=== PATIENT | female | born 1980 | race Caucasian/White ===

== ENCOUNTER 2016-03-30 08:40 | Emergency (ER) | payer MEDICAID ==
[~2016-03-30] VITALS: Ht 160 cm; Wt 92.0 kg
[2016-03-30 08:44] VITALS: Ht 160 cm; Wt 92.0 kg
--- NOTE | 2016-03-30 09:44 | RADRPT ---
PROCEDURE: XR Right Foot CLINICAL INDICATION: Second and third toe pain TECHNIQUE: AP, oblique, and lateral radiographs were submitted. COMPARISON: None FINDINGS: Osseous structures: appear well mineralized and intact with no fracture or destructive process iden tified. Joint spaces: are well maintained, with no significant spurring, erosion or joint effusion evident. Soft tissues: appear unremarkable. IMPRESSION: Unremarkable right foot. Physician Anil Date Time Electronically viewed and signed by Camron Judge Physician on 03/30/2016 09:44 /
[2016-03-30] MEDS ORDERED: NAPR-260 PO (09:56)
--- NOTE | 2016-03-30 12:06 | ERD ---
DATE OF SERVICE: 03/30/2016 HISTORY OF PRESENT ILLNESS: The patient is a 35-year-old female coming in complaining of right foot pain. Patient dropped a larger measuring stick on her foot. Her second and third toes are painful on the right foot. She is able to ambulate. She has not taken any medication for her symptoms. S he states that her toes feel a sleepy and it hurts more when she applies pressure. PAST MEDICAL HISTORY: Denies medical problems. ALLERGIES: Denies allergies to medications. SURGICAL HISTORY: Denies. SOCIAL HISTORY: Denies. REVIEW OF SYSTEMS: Refer to HPI for positives, all other systems negative. PHYSICAL EXAMINATION VITAL SIGNS: Temperature is 98.1, pulse 71, blood pressure 143/58, respiratory 16, O2 saturation 97 % on room air. Pain intensity is 6/10. GENERAL: The patient is well-appearing, well-nourished, no acute distress. CHEST: Clear to auscultation bilaterally. There are no rales, wheezes or rhonchi. HEART: Regular rate and rhythm. No murmurs, clicks, rubs or gallops. No S3 or S4. SKIN: There is no apparent rash or petechia. The skin is warm and dry. EXTREMITIES: The patient has mild tenderness to palpation over the distal tip of the right second a nd third toe. There is no obvious deformity, no crepitus on exam and no open lacerations or abrasio ns. Cap refill is less than 2 seconds. Compartments are soft. Pulses are intact. Neurovascularly intact. Patient is able to move slightly. EMERGENCY ROOM COURSE: The patient had a 3-view x-ray done of the right 2nd and 3rd toe which showe d unremarkable right foot x-ray. Patient was guy taped the second and third toe and given an orth o shoe. DIAGNOSIS: Toe contusion. MEDICAL DECISION MAKING: I have low suspicion for acute fracture or dislocation. Low suspicion for open fracture, tendon or ligament injury or vascular deficit. DISCHARGE: The patient is discharged stable. Patient is given a prescription for naproxen and told to follow up with primary care within 1 to 2 days for reevaluation. Patient was told if symptoms p rogress or worsen to return to the ER. All other questions answered at time of discharge. Discharg e summary given at the time of departure. Patient understood and complied with plan. Dictated By: JOY MAYER for MICHAEL VO/[place] Conf#: [id number] DID#: [id number]
== END 2016-03-30 10:25 | disposition home or self-care (01) ==
LOC: FTE 08:40
DX: S90.121A Contusion of right lesser toe(s) without damage to nail, initial encounter (principal); W20.8XXA Other cause of strike by thrown, projected or falling object, initial encounter; Y92.9 Unspecified place or not applicable
CPT/HCPCS: 73630

== ENCOUNTER 2016-09-24 00:04 | Emergency (ER) | payer MEDICAID ==
[~2016-09-24] VITALS: Ht 152.4 cm; Wt 90.0 kg
[~2016-09-24 00:04] MED LIST: NAPR-260 PO
[2016-09-24 00:07] VITALS: Ht 152.4 cm; Wt 90.0 kg
--- NOTE | 2016-09-24 01:03 | ERA ---
ER Documentation Chief Complaint Date/Time DATE: 09/24/16 TIME: 01:03 Chief Complaint abd pain HPI The patient is a 36-year-old female, presenting to the ER because of epigastric and topical abdominal pain radiating to the back. She denies similar symptoms previously, denies fever, chills, neck pain, chest pain, complains of nausea and vomiting 2, denies dyspnea, dysuria, constipation, diarrhea. She does not smoke or drink Past medical/surgical history: None ROS All systems reviewed and are negative except as per history of present illness. Medications Home Meds Active Scripts Omeprazole* (Omeprazole*) 20 Mg Capsule.dr, 20 MG PO DAILY, #30 CAP Prov:NORTH HOPKINS MD 09/24/16 Ibuprofen* (Motrin*) 600 Mg Tab, 600 MG PO Q6H Y for PAIN AND OR ELEVATED TEMP, #30 TAB Prov:NORTH HOPKINS MD 09/24/16 Naproxen* (Naprosyn*) 500 Mg Tablet, 500 MG PO BID Y for PAIN AND/OR INFLAMMATION, #30 TAB Prov:STEPHANIE NEWTON PA-C 03/30/16 Allergies Allergies: Coded Allergies: No Known Allergy (Unverified , 03/30/16) PMhx/Soc History of Surgery: No Anesthesia Reaction: No Hx Neurological Disorder: No Hx Respiratory Disorders: No Hx Cardiac Disorders: No Hx Psychiatric Problems: No Hx Miscellaneous Medical Probl: Yes (; Normal Spontaneous Deliveries) Hx Alcohol Use: No Hx Substance Use: No Hx Tobacco Use: No Physical Exam Vitals Vital Signs Date Time Temp Pulse Resp B/P Pulse Ox O2 Delivery O2 Flow Rate FiO2 09/24/16 03:47 98.1 63 16 109/54 99 Room Air 09/24/16 00:07 98.5 69 20 150/85 98 Physical Exam Const: No acute distress. Head: Atraumatic. Eyes: Normal Conjunctiva. ENT: Normal External Ears, Nose and Mouth. Neck: Full range of motion. No meningismus. Resp: Clear to auscultation bilaterally. Cardio: Regular rate and rhythm. Abd: Soft, non distended, normal bowel sounds, mild epigastric and right upper quadrant tenderness, no right lower quadrant, CVA tenderness, rigidity, rebound tenderness Skin: No petechiae or rashes. Back: No midline or flank tenderness. Ext: No cyanosis, or edema. Neur: Awake and alert. No focal deficit Psych: Normal Mood and Affect. Result Diagram: 09/24/168 09/24/16 0118 Results 24 hrs Laboratory Tests Test 09/24/16 01:14 09/24/16 01:18 Bedside Urine pH (LAB) 6.0 Bedside Urine Protein (LAB) 1+ Bedside Urine Glucose (UA) Negative Bedside Urine Ketones (LAB) Negative Bedside Urine Blood 2+ Bedside Urine Nitrite (LAB) Negative Bedside Urine Leukocyte Esterase (L Negative White Blood Count 11.310^3/ul Red Blood Count 4.6410^6/ul Hemoglobin 13.6g/dl Hematocrit 40.8% Mean Corpuscular Volume 87.9fl Mean Corpuscular Hemoglobin 29.3pg Mean Corpuscular Hemoglobin Concent 33.3g/dl Red Cell Distribution Width 12.2% Platelet Count 15361^3/UL Mean Platelet Volume 10.3fl Neutrophils % 68.4% Lymphocytes % 21.6% Monocytes % 8.2% Eosinophils % 1.1% Basophils % 0.3% Nucleated Red Blood Cells % 0.0/100WBC Neutrophils # 7.810^3/ul Lymphocytes # 2.410^3/ul Monocytes # 0.910^3/ul Eosinophils # 0.110^3/ul Basophils # 0.010^3/ul Nucleated Red Blood Cells # 0.010^3/ul Sodium Level 131mmol/L Potassium Level 3.7mmol/L Chloride Level 98mmol/L Carbon Dioxide Level 28mmol/L Anion Gap 9 Blood Urea Nitrogen 13mg/dl Creatinine 0.57mg/dl Glucose Level 103mg/dl Calcium Level 10.5mg/dl Total Bilirubin 0.1mg/dl Direct Bilirubin 0.00mg/dl Indirect Bilirubin 0.1mg/dl Aspartate Amino Transf (AST/SGOT) 21IU/L Alanine Aminotransferase (ALT/SGPT) 34IU/L Alkaline Phosphatase 56IU/L Total Protein 7.5g/dl Albumin 4.5g/dl Globulin 3.00g/dl Albumin/Globulin Ratio 1.50 Lipase 35U/L Current Medications Medications (Trade) Dose Ordered Sig/Martine Route PRN Reason Start Time Stop Time Status Last Admin Dose Admin Sodium Chloride (NS) 1,000 ml @ 1,000 mls/hr Q1H STAT IV 09/24/16 01:08 09/24/16 02:07 DC 09/24/16 01:16 Morphine Sulfate (morphine) 4 mg ONCE STAT IV 09/24/16 01:08 09/24/16 01:09 DC 09/24/16 01:16 Ondansetron HCl (Zofran Inj) 4 mg ONCE STAT IV 09/24/16 01:08 09/24/16 01:09 DC 09/24/16 01:16 Ketorolac Tromethamine (Toradol) 30 mg ONCE ONCE IV 09/24/16 04:00 09/24/16 04:01 DC 09/24/16 04:04 Procedures/[place] [id number] Radiology Main Line: [phone] DIAGNOSTIC IMAGING REPORT Patient: DILLON SALAZAR : 1980 Age: 36 Sex: F MR #: [id number] DOS: 09/24/16 0108 Ordering MD: NORTH HOPKINS MD Location: E/R Room/Bed: PROCEDURE: Ultrasound of the abdomen. CLINICAL INDICATION: Right upper quadrant pain. TECHNIQUE: Sonographic images of the abdomen were performed. COMPARISON: No pertinent prior examinations were submitted for comparison. FINDINGS: Liver: The liver is diffusely increased in echogenicity and mildly enlarged, measuring approximately 17.5 cm. The hepatic veins and portal veins are patent with appropriate directional flow. No intrahepatic ductal dilatation is seen. Gallbladder: The gallbladder is not distended and has normal wall thickness. No pericholecystic fluid or gallstones are visualized. The common duct measures 3.6 mm. Pancreas: There is limited evaluation of the pancreatic body and tail. The visualized portions of the pancreas are unremarkable. Kidneys: The right kidney measures 11.4 cm. There is normal corticomedullary differentiation. There is no evidence of renal calculus or hydronephrosis. IVC: The visualized portion of the inferior vena cava is unremarkable. Aorta: Normal in size. Free fluid: None. IMPRESSION: Hepatic steatosis and mild hepatomegaly. RPTAT: HIKT .Deep Thony, MD, MD Date Time Electronically viewed and signed by .Deep Bhandari MD, MD on 09/24/2016 02:33 .T/ CC: NORTH HOPKINS MD MEDICAL MAKING DECISION: The patient is a 36-year-old female, presenting with acute epigastric abdominal pain of unclear etiology. He was treated with 1 L normal saline, morphine 4 mg IV, Toradol 30 mg IV for pain, Zofran 4 mg IV for nausea with good response The differential diagnoses considered include but are not limited to cholelithiasis, cholecystitis, cystitis, pancreatitis, hepatitis, gastritis, peptic ulcer disease, gastric ulcer, appendicitis, diverticulitis, cholangitis, choledocholithiasis, partial small bowel obstruction. Departure Diagnosis: Primary Impression: Abdominal pain Condition: Good Comments He was discharged with Motrin and Prilosec I discussed the findings with the patient. I advised the patient to follow-up with the primary physician in about 1-2 days, sooner if needed and return if any concern. The patient's blood pressure was elevated (>120/80) but appears stable without evidence of hypertension emergency or urgency. The patient was counseled about the risks of hypertension and urged to pursue outpatient monitoring and therapy within a week with their primary care physician. NORTH HOPKINS MD Sep 24, 2016 01:03
[2016-09-24] MEDS ORDERED: morphine 4 MG/ML VIAL IV STA (01:08)
[2016-09-24] MEDS ORDERED: SOD CHLORIDE 0.9% 1,000 ML IV STA (01:08)
[2016-09-24] MEDS ORDERED: ONDANSETRON 4 MG INJ IV STA (01:08)
[2016-09-24 01:10] LABS: URINE BLOOD (Dip) POC 2+ (NEGATIVE)
[2016-09-24 01:32] LABS: ADD SCAN DIFF NO
[2016-09-24 01:41] LABS: BASOPHILS % 0.3 % (0.0-2.0); EOSINOPHILS # 0.1 10^3/ul (0.0-0.5); EOSINOPHILS % 1.1 % (0.0-7.0); HEMATOCRIT 40.8 % (37.0-47.0); HEMOGLOBIN 13.6 g/dl (12.0-16.0); LYMPHOCYTES # 2.4 10^3/ul (0.8-2.9); LYMPHOCYTES % 21.6 % (15.0-51.0); MEAN CORPUSCULAR HEMOGLOBIN 29.3 pg (29.0-33.0); MEAN CORPUSCULAR HGB CONC 33.3 g/dl (32.0-37.0); MEAN CORPUSCULAR VOLUME 87.9 fl (82.0-101.0); MEAN PLATELET VOLUME 10.3 fl (7.4-10.4); MONOCYTE # 0.9 10^3/ul (0.3-0.9); MONOCYTES % 8.2 % (0.0-11.0); NEUTROPHIL # 7.8 10^3/ul (1.6-7.5); NEUTROPHILS % 68.4 % (39.0-77.0); PLATELET COUNT 284 10^3/UL (140-415); RED BLOOD COUNT 4.64 10^6/ul (4.20-5.40); RED CELL DISTRIBUTION WIDTH 12.2 % (11.5-14.5); WHITE BLOOD COUNT 11.3 10^3/ul (4.8-10.8)
[2016-09-24 02:10] LABS: ALBUMIN 4.5 g/dl (3.3-4.9); ALBUMIN/GLOBULIN RATIO 1.5; BILIRUBIN,INDIRECT 0.1 mg/dl (0-1.1); BILIRUBIN,TOTAL 0.1 mg/dl (0.2-1.3); CALCIUM 10.5 mg/dl (8.4-10.2); CREATININE 0.57 mg/dl (0.44-1.00); POTASSIUM 3.7 mmol/L (3.5-5.1); TOTAL PROTEIN 7.5 g/dl (6.1-8.1)
--- NOTE | 2016-09-24 02:34 | RADRPT ---
PROCEDURE: Ultrasound of the abdomen. CLINICAL INDICATION: Right upper quadrant pain. TECHNIQUE: Sonographic images of the abdomen were performed. COMPARISON: No pertinent prior examinations were submitted for comparison. FINDINGS: Liver: The liver is diffusely increased in echogenicity and mildly enlarged, measuring approximatel y 17.5 cm. The hepatic veins and portal veins are patent with appropriate directional flow. No intra hepatic ductal dilatation is seen. Gallbladder: The gallbladder is not distended and has normal wall thickness. No pericholecystic flu id or gallstones are visualized. The common duct measures 3.6 mm. Pancreas: There is limited evaluation of the pancreatic body and tail. The visualized portions of the pancreas are unremarkable. Kidneys: The right kidney measures 11.4 cm. There is normal corticomedullary differentiation. Ther e is no evidence of renal calculus or hydronephrosis. IVC: The visualized portion of the inferior vena cava is unremarkable. Aorta: Normal in size. Free fluid: None. IMPRESSION: Hepatic steatosis and mild hepatomegaly. RPTAT: HIKT .Deep Bhandari MD, Date Time Electronically viewed and signed by .Deep Bhandari MD, on 09/24/2016 02:33 .T/
[2016-09-24 03:47] VITALS: BP 109/54; PULSE 63; RESP 16; TEMP 98.1
[2016-09-24] MEDS ORDERED: IBUP-1542 PO (03:55)
[2016-09-24] MEDS ORDERED: OMEP20CA16 PO (03:56)
[2016-09-24] MEDS ORDERED: KETOROLAC 30 MG INJ IV ONE (04:00)
== END 2016-09-24 04:22 | disposition home or self-care (01) ==
LOC: E/R 00:04
DX: R10.13 Epigastric pain (principal)
CPT/HCPCS: 36415; 76705; 80053; 81003; 83690; 85025; 96374; 96375; J1885; J2270; J2405; J7030; Z7502

== ENCOUNTER 2017-02-01 20:50 | Emergency (ER) | payer MEDICAID, OTHER ==
[~2017-02-01] VITALS: Ht 157.5 cm; Wt 93.2 kg
[~2017-02-01 20:50] MED LIST changes: +IBUP-1542 PO; +OMEP20CA16 PO
[2017-02-01 21:14] VITALS: Ht 157.5 cm; Wt 93.2 kg
--- NOTE | 2017-02-02 00:30 | ERD ---
ER Documentation Chief Complaint Chief Complaint right flank pain noted x1 day, denies dysuria HPI 36-year-old female presents to emergency department for complaints of right flank pain right lower back pain radiating to the right lower leg that started today. Patient describes the pain as sharp pain, 6/10 scale, not better or worse with anything. Patient does not have any fever or chills. Patient does not have any hematuria or dysuria. ROS All systems reviewed and are negative except as per history of present illness. Medications Home Meds Active Scripts Omeprazole* (Omeprazole*) 20 Mg Capsule.dr, 20 MG PO DAILY, #30 CAP Prov:NORTH HOPKINS MD 09/24/16 Ibuprofen* (Motrin*) 600 Mg Tab, 600 MG PO Q6H Y for PAIN AND OR ELEVATED TEMP, #30 TAB Prov:NORTH HOPKINS MD 09/24/16 Naproxen* (Naprosyn*) 500 Mg Tablet, 500 MG PO BID Y for PAIN AND/OR INFLAMMATION, #30 TAB Prov:STEPHANIE NEWTON PA-C 03/30/16 Allergies Allergies: Coded Allergies: No Known Allergy (Unverified , 03/30/16) PMhx/Soc Medical and Surgical Hx: pt denies Medical Hx, pt denies Surgical Hx History of Surgery: No Anesthesia Reaction: No Hx Neurological Disorder: No Hx Respiratory Disorders: No Hx Cardiac Disorders: No Hx Psychiatric Problems: No Hx Miscellaneous Medical Probl: Yes (; Normal Spontaneous Deliveries) Hx Alcohol Use: No Hx Substance Use: No Hx Tobacco Use: No FmHx Family History: No coronary disease, No diabetes, No other Physical Exam Vitals Vital Signs Date Time Temp Pulse Resp B/P Pulse Ox O2 Delivery O2 Flow Rate FiO2 02/01/17 21:14 99.1 96 20 130/65 98 Physical Exam GENERAL: The patient is well developed and appropriate for usual state of health, in no apparent distress. CHEST: Clear to auscultation bilaterally. There are no rales, wheezes or rhonchi. HEART: Regular rate and rhythm. No murmurs, clicks, rubs or gallops. No S3 or S4. ABDOMEN: Soft, nontender and nondistended. Good bowel sounds. No rebound or guarding. No gross peritonitis. No gross organomegaly or masses. No Patterson sign or McBurney point tenderness. BACK: No midline or flank tenderness. EXTREMITIES: Equal pulses bilaterally. There is no peripheral clubbing, cyanosis or edema. No focal swelling or erythema. Full range of motion. Grossly neurovascularly intact. NEURO: Alert and oriented. Cranial nerves 2-12 intact. Motor strength in all 4 extremities with 5/5 strength. Sensation grossly intact. Normal speech and gait. SKIN: There is no apparent rash or petechia. The skin is warm and dry. HEMATOLOGIC AND LYMPHATIC: There is no evidence of excessive bruising or lymphedema. No gross cervical, axillary, or inguinal lymphadenopathy. Result Diagram: 02/02/17 00402/02/1740 Results 24 hrs Laboratory Tests Test 02/02/17 00:41 02/02/17 01:00 White Blood Count 10.910^3/ul Red Blood Count 4.4710^6/ul Hemoglobin 13.4g/dl Hematocrit 40.2% Mean Corpuscular Volume 89.9fl Mean Corpuscular Hemoglobin 30.0pg Mean Corpuscular Hemoglobin Concent 33.3g/dl Red Cell Distribution Width 12.0% Platelet Count 23650^3/UL Mean Platelet Volume 10.5fl Neutrophils % 59.9% Lymphocytes % 29.0% Monocytes % 7.9% Eosinophils % 2.4% Basophils % 0.5% Nucleated Red Blood Cells % 0.0/100WBC Neutrophils # 6.610^3/ul Lymphocytes # 3.210^3/ul Monocytes # 0.910^3/ul Eosinophils # 0.310^3/ul Basophils # 0.110^3/ul Nucleated Red Blood Cells # 0.010^3/ul Sodium Level 141mmol/L Potassium Level 3.9mmol/L Chloride Level 105mmol/L Carbon Dioxide Level 28mmol/L Anion Gap 12 Blood Urea Nitrogen 11mg/dl Creatinine 0.71mg/dl Glucose Level 98mg/dl Calcium Level 9.8mg/dl Total Bilirubin 0.2mg/dl Direct Bilirubin 0.00mg/dl Indirect Bilirubin 0.2mg/dl Aspartate Amino Transf (AST/SGOT) 23IU/L Alanine Aminotransferase (ALT/SGPT) 43IU/L Alkaline Phosphatase 59IU/L Total Protein 7.3g/dl Albumin 3.9g/dl Globulin 3.40g/dl Albumin/Globulin Ratio 1.14 Lipase 53U/L Urine Color RED Urine Clarity CLEAR Urine pH 6.0 Urine Specific [place] 1.021 Urine Ketones NEGATIVEmg/dL Urine Nitrite NEGATIVEmg/dL Urine Bilirubin NEGATIVEmg/dL Urine Urobilinogen NEGATIVEmg/dL Urine Leukocyte Esterase NEGATIVELeu/ul Urine Microscopic RBC 80/HPF Urine Microscopic WBC 3/HPF Urine Hemoglobin 3+mg/dL Urine Glucose NEGATIVEmg/dL Urine Total Protein 2+mg/dl PROCEDURE: CT Abdomen and Pelvis without contrast. CLINICAL INDICATION: Abdominal pain TECHNIQUE: CT scan of the abdomen and pelvis without contrast was performed on a multidetector high-resolution CT scanner. The patient was scanned without intravenous contrast. Coronal and sagittal reformatted images were obtained from the axial source images. Images were reviewed on a high-resolution PACS workstation. The total exam CTDI equals 22.26 mGy and the total exam DLP equals 1359 mGy-cm. One or more the following dose reduction techniques were utilized: Automated exposure control, adjustment of the mA and / or kV according to patient's size, or use of iterative reconstruction technique. DICOM images are available. COMPARISON: Abdominal ultrasound of 09/24/2016 FINDINGS: Minimal dependent atelectasis in posterior lung bases. No pneumoperitoneum is seen. Small umbilical hernia containing fat only. There is appearance of hepatic steatosis greater in the right lobe of the liver and caudate lobe. The length of the liver equals 20.5 cm which could be secondary to a Mayra lobe, normal variant. Gallbladder is contracted. This is nonspecific and could be secondary to nonfasting state. Food material/debris and air is seen in the stomach. No abnormality seen in the pancreas. No biliary dilatation is seen. No abnormality seen in the spleen, adrenals, kidneys. No renal stone, hydronephrosis or ureteral stone is seen. No abdominal aortic aneurysm is seen. No ascites is seen. No definite abnormality of the uterus or adnexal regions is seen on CT. No abnormality of the low volume bladder is seen. No definite abnormality of the colon is seen. There is no evidence of acute appendicitis. No dilated small bowel loops are seen. No enlarged lymph nodes are seen in the abdomen or pelvis. Mild degenerative changes at sacroiliac joints. IMPRESSION: Hepatic steatosis. Please see above. RPTAT: HJES .See Breaux MD, MD Date Time Electronically viewed and signed by .See Breaux MD, on 02/02/2017 02:03 .S/ CC: ANITA ISAAC NP Procedures/MDM Medical Decision Making: Symptoms of right flank pain most likely can be from renal colic, urine shows multiple RBCs in the urine and +3 hemoglobin, CT scan does not show the stone but possibly had passed it already. Pain can be also from musculoskeletal pain. There is low suspicion for abdominal emergencies at this time. Patients abdominal exam is normal at this time. Patients radiology exam does not show any abdominal emergencies at this time. There is low suspicion for appendicitis, cholecystitis, abdominal aortic aneurysms or peritonitis at this time. There is low suspicion for sepsis. Patient appears well and is hemodynamically stable. Disposition: Home. Condition: Stable Prescription [place], Zofran Instructions: Patient is advised to take medications as prescribed. Patient is advised to rest, increase fluid intake and do brat diet for next 1-2 days and progress as tolerated. Patient is advised that if symptoms are worse, severe abdominal pain, uncontrolled vomiting, high fever, severe flank pain, worst signs and symptoms, to return to the emergency department immediately. Otherwise, patient can follow up with primary care doctor in 5-7 days. Disclaimer: Inadvertent spelling and grammatical errors are likely due to EHR/ dictation software use and do not reflect on the overall quality of patient care. Also, please note that the electronic time recorded on this note does not necessarily reflect the actual time of the patient encounter. Departure Diagnosis: Primary Impression: Flank pain Condition: Stable Patient Instructions: Flank Pain, Uncertain Cause Additional Instructions: Patient is advised to take medications as prescribed. Patient is advised to rest , increase fluid intake and do brat diet for next 1-2 days and progress as tolerated. Patient is advised that if symptoms are worse, severe abdominal pain , uncontrolled vomiting, high fever, severe flank pain, worst signs and symptoms , to return to the emergency department immediately. Otherwise, patient can follow up with primary care doctor in 5-7 days. ANITA ISAAC NP Feb 02, 2017 00:30
[2017-02-02 01:30] LABS: BASOPHIL # 0.1 10^3/ul (0.0-0.1); BASOPHILS % 0.5 % (0.0-2.0); EOSINOPHILS # 0.3 10^3/ul (0.0-0.5); EOSINOPHILS % 2.4 % (0.0-7.0); HEMATOCRIT 40.2 % (37.0-47.0); HEMOGLOBIN 13.4 g/dl (12.0-16.0); LYMPHOCYTES # 3.2 10^3/ul (0.8-2.9); MEAN CORPUSCULAR HGB CONC 33.3 g/dl (32.0-37.0); MEAN CORPUSCULAR VOLUME 89.9 fl (82.0-101.0); MEAN PLATELET VOLUME 10.5 fl (7.4-10.4); MONOCYTE # 0.9 10^3/ul (0.3-0.9); MONOCYTES % 7.9 % (0.0-11.0); NEUTROPHIL # 6.6 10^3/ul (1.6-7.5); NEUTROPHILS % 59.9 % (39.0-77.0); PLATELET COUNT 323 10^3/UL (140-415); RED BLOOD COUNT 4.47 10^6/ul (4.20-5.40); WHITE BLOOD COUNT 10.9 10^3/ul (4.8-10.8)
[2017-02-02 01:45] LABS: ALBUMIN 3.9 g/dl (3.3-4.9); ALBUMIN/GLOBULIN RATIO 1.14; BILIRUBIN,INDIRECT 0.2 mg/dl (0-1.1); BILIRUBIN,TOTAL 0.2 mg/dl (0.2-1.3); CALCIUM 9.8 mg/dl (8.4-10.2); CREATININE 0.71 mg/dl (0.44-1.00); POTASSIUM 3.9 mmol/L (3.5-5.1); TOTAL PROTEIN 7.3 g/dl (6.1-8.1)
[2017-02-02 01:58] LABS: UR RBC 80 /HPF (0-5)
[2017-02-02 02:03] LABS: ADD UMIC YES; UR ASCORBIC ACID NEGATIVE (NEGATIVE); UR BILIRUBIN (Dip) NEGATIVE (NEGATIVE); UR BLOOD (Dip) 3+ mg/dL (NEGATIVE); UR CLARITY CLEAR (CLEAR); UR COLOR RED (YELLOW); UR GLUCOSE (Dip) NEGATIVE (NEGATIVE); UR KETONES (Dip) NEGATIVE (NEGATIVE); UR LEUKOCYTE ESTERASE (Dip) NEGATIVE Leu/ul (NEGATIVE); UR NITRITE (Dip) NEGATIVE (NEGATIVE); UR SPECIFIC GRAVITY (Dip) 1.021 (1.003-1.030); UR TOTAL PROTEIN (Dip) 2+ mg/dl (NEGATIVE); UR UROBILINOGEN (Dip) NEGATIVE (NEGATIVE)
--- NOTE | 2017-02-02 02:03 | RADRPT ---
PROCEDURE: CT Abdomen and Pelvis without contrast. CLINICAL INDICATION: Abdominal pain TECHNIQUE: CT scan of the abdomen and pelvis without contrast was performed on a multidetector hig h-resolution CT scanner. The patient was scanned without intravenous contrast. Coronal and sagittal reformatted images were obtained from the axial source images. Images were reviewed on a high-resol [employer] PACS workstation. The total exam CTDI equals 22.26 mGy and the total exam DLP equals 1359 mGy- cm. One or more the following dose reduction techniques were utilized: Automated exposure control, adjus tment of the mA and / or kV according to patient's size, or use of iterative reconstruction techniqu e. DICOM images are available. COMPARISON: Abdominal ultrasound of 09/24/2016 FINDINGS: Minimal dependent atelectasis in posterior lung bases. No pneumoperitoneum is seen. Small umbilical hernia containing fat only. There is appearance of hepatic steatosis greater in the right lobe of th e liver and caudate lobe. The length of the liver equals 20.5 cm which could be secondary to a Riede l lobe, normal variant. Gallbladder is contracted. This is nonspecific and could be secondary to non fasting state. Food material/debris and air is seen in the stomach. No abnormality seen in the pancr eas. No biliary dilatation is seen. No abnormality seen in the spleen, adrenals, kidneys. No renal s tone, hydronephrosis or ureteral stone is seen. No abdominal aortic aneurysm is seen. No ascites is seen. No definite abnormality of the uterus or adnexal regions is seen on CT. No abnormality of the low volume bladder is seen. No definite abnormality of the colon is seen. There is no evidence of ac magnus appendicitis. No dilated small bowel loops are seen. No enlarged lymph nodes are seen in the abdomen or pelvis. Mild degenerative changes at sacroiliac joints. IMPRESSION: Hepatic steatosis. Please see above. RPTAT: HJES .See Breaux MD, MD Date Time Electronically viewed and signed by .See Breaux MD, MD on 02/02/2017 02:03 .S/
[2017-02-02] MEDS ORDERED: ONDA4TAB14 PO (02:21)
[2017-02-02] MEDS ORDERED: HYDR-906 PO (02:21)
== END 2017-02-02 02:31 | disposition home or self-care (01) ==
LOC: FTE 20:50
DX: R10.9 Unspecified abdominal pain (principal)
CPT/HCPCS: 74176; 80053; 81001; 83690; 85025; Z7502

== ENCOUNTER 2017-02-08 17:41 | Emergency (ER) | payer MEDICAID ==
[~2017-02-08] VITALS: Ht 160 cm; Wt 93.8 kg
[~2017-02-08 17:41] MED LIST changes: +HYDR-906 PO; +ONDA4TAB14 PO
[2017-02-08 17:56] VITALS: Ht 160 cm; Wt 93.8 kg
[2017-02-08] MEDS ORDERED: KETOROLAC 30 MG INJ IV STA (20:24)
--- NOTE | 2017-02-08 20:55 | ERD ---
ER Documentation Chief Complaint Chief Complaint has r side of flank pain seen here told that she has kidney stones HPI This is a 36-year-old female who presents the emergency department today complaining of right-sided back pain for the past week. States that she had taken Dennard previously but her pain returned. States that she has some very mild pelvic tenderness but is not concerned about that. Denies any fevers or chills. Denies any trauma. ROS All systems reviewed and are negative except as per history of present illness. Medications Home Meds Active Scripts Cyclobenzaprine Hcl* (Cyclobenzaprine Hcl*) 10 Mg Tablet, 10 MG PO QHS, #7 TAB Prov:KAREN MCCABE PA-C 02/08/17 Naproxen* (Naprosyn*) 500 Mg Tablet, 500 MG PO BID Y for PAIN AND/OR INFLAMMATION, #30 TAB Prov:KAREN MCCABE PA-C 02/08/17 Tramadol HCl (Tramadol HCl) 50 Mg Tablet, 50 MG PO Q4 Y for PAIN, #20 TAB Prov:KAREN MCCABE PA-C 02/08/17 Ondansetron (Ondansetron Odt) 4 Mg Tab.rapdis, 4 MG PO Q6H Y for NAUSEA AND/OR VOMITING, #20 TAB Prov:ANITA ISAAC NP 02/02/17 Hydrocodone/Acetaminophen (Dennard 5-325 Tablet) 1 Each Tablet, 1 TAB PO Q6H Y for SEVERE PAIN LEVEL 7-10, #20 TAB Prov:ANITA ISAAC NP 02/02/17 Omeprazole* (Omeprazole*) 20 Mg Capsule.dr, 20 MG PO DAILY, #30 CAP Prov:BALWINDER HOPKINS MD 09/24/16 Ibuprofen* (Motrin*) 600 Mg Tab, 600 MG PO Q6H Y for PAIN AND OR ELEVATED TEMP, #30 TAB Prov:BALWINDER HOPKINS MD 09/24/16 Naproxen* (Naprosyn*) 500 Mg Tablet, 500 MG PO BID Y for PAIN AND/OR INFLAMMATION, #30 TAB Prov:STEPHANIE NEWTON PA-C 03/30/16 Allergies Allergies: Coded Allergies: No Known Allergy (Unverified , 03/30/16) PMhx/Soc Medical and Surgical Hx: pt denies Medical Hx, pt denies Surgical Hx History of Surgery: No Anesthesia Reaction: No Hx Neurological Disorder: No Hx Respiratory Disorders: No Hx Cardiac Disorders: No Hx Psychiatric Problems: No Hx Miscellaneous Medical Probl: Yes (; Normal Spontaneous Deliveries) Hx Alcohol Use: No Hx Substance Use: No Hx Tobacco Use: No Physical Exam Vitals Vital Signs Date Time Temp Pulse Resp B/P Pulse Ox O2 Delivery O2 Flow Rate FiO2 02/08/17 17:56 98.0 81 18 132/79 97 Physical Exam Const: obese, NAD Head: Atraumatic Eyes: Normal Conjunctiva ENT: Normal External Ears, Nose and Mouth. Neck: Full range of motion..~ No meningismus. Resp: Clear to auscultation bilaterally Cardio: Regular rate and rhythm, no murmurs Abd: Soft, non tender, non distended. Normal bowel sounds Skin: No petechiae or rashes Back: Lumbar spine mild midline tenderness. Right-sided paraspinal tenderness. No CVA tenderness. Pulses 2+. Distal neurovascularly intact Ext: No cyanosis, or edema Neur: Awake and alert Psych: Normal Mood and Affect Result Diagram: 02/08/17212902/08/172129 Results 24 hrs Laboratory Tests Test 02/08/17 21:30 02/08/17 22:35 White Blood Count 13.810^3/ul Red Blood Count 4.2210^6/ul Hemoglobin 12.6g/dl Hematocrit 37.6% Mean Corpuscular Volume 89.1fl Mean Corpuscular Hemoglobin 29.9pg Mean Corpuscular Hemoglobin Concent 33.5g/dl Red Cell Distribution Width 11.9% Platelet Count 27717^3/UL Mean Platelet Volume 10.5fl Neutrophils % 68.7% Lymphocytes % 20.6% Monocytes % 8.0% Eosinophils % 2.0% Basophils % 0.3% Nucleated Red Blood Cells % 0.0/100WBC Neutrophils # 9.510^3/ul Lymphocytes # 2.910^3/ul Monocytes # 1.110^3/ul Eosinophils # 0.310^3/ul Basophils # 0.010^3/ul Nucleated Red Blood Cells # 0.010^3/ul Sodium Level 137mmol/L Potassium Level 3.3mmol/L Chloride Level 101mmol/L Carbon Dioxide Level 27mmol/L Anion Gap 12 Blood Urea Nitrogen 14mg/dl Creatinine 0.73mg/dl Glucose Level 102mg/dl Calcium Level 9.2mg/dl Total Bilirubin 0.1mg/dl Direct Bilirubin 0.00mg/dl Indirect Bilirubin 0.1mg/dl Aspartate Amino Transf (AST/SGOT) 18IU/L Alanine Aminotransferase (ALT/SGPT) 31IU/L Alkaline Phosphatase 58IU/L Total Protein 6.8g/dl Albumin 3.9g/dl Globulin 2.90g/dl Albumin/Globulin Ratio 1.34 Urine Color YELLOW Urine Clarity CLEAR Urine pH 7.0 Urine Specific [place] 1.024 Urine Ketones NEGATIVEmg/dL Urine Nitrite NEGATIVEmg/dL Urine Bilirubin NEGATIVEmg/dL Urine Urobilinogen NEGATIVEmg/dL Urine Leukocyte Esterase TRACELeu/ul Urine Microscopic RBC 12/HPF Urine Microscopic WBC 2/HPF Urine Squamous Epithelial Cells FEW/HPF Urine Hemoglobin 1+mg/dL Urine Glucose NEGATIVEmg/dL Urine Total Protein NEGATIVEmg/dl Current Medications Medications (Trade) Dose Ordered Sig/Martine Route PRN Reason Start Time Stop Time Status Last Admin Dose Admin Ketorolac Tromethamine (Toradol) 30 mg ONCE STAT IV 02/08/17 20:24 02/08/17 20:25 DC 02/08/17 21:31 Acetaminophen/ Hydrocodone Bitart (Dennard (5/325)) 1 tab ONCE ONCE PO 02/08/17 23:30 02/08/17 23:31 DC 02/08/17 23:23 DIAGNOSTIC IMAGING REPORT Patient: DILLON SALAZAR : 1980 Age: 36 Sex: F [id number] DOS: 02/08/17 0000 Ordering MD: KAREN MCCABE PA-C Location: E Room/Bed: PROCEDURE: Retroperitoneal ultrasound. CLINICAL INDICATION: Right-sided flank pain, hematuria TECHNIQUE: Mcknight scale and color doppler ultrasound images of the retroperitoneum, kidneys, urinary bladder COMPARISON: CT 02/02/2017; US ABDOMEN 09/24/2016 FINDINGS: Kidneys: Right length (cm) : 11.4 Left length (cm) : 12.4 Right cortical thickness: Normal. Left cortical thickness: Normal. Echogenicity: Normal bilaterally. Hydronephrosis: None. Renal calculi: None. Focal lesions: None. Free fluid/ascites: None. Abdominal aorta: Normal caliber of the visualized segments. Bladder: No focal lesions. Other findings: None. IMPRESSION: Normal appearance of both kidneys without hydronephrosis or sonographic evidence of renal calculi. RPTAT: AADD .Eleno Cummins MD, MD Date Time Electronically viewed and signed by .Eleno Cummins MD, MD on 02/08/2017 21:04 .B/ CC: KAREN MCCABE PA-C DIAGNOSTIC IMAGING REPORT Patient: DILLON SALAZAR : 1980 Age: 36 Sex: F MR #: [id number] DOS: 02/08/17 0000 Ordering MD: KAREN MCCABE PA-C Location: FTE Room/Bed: PROCEDURE: XR Lumbar Spine. CLINICAL INDICATION: Pain TECHNIQUE: Three views of the lumbar spine are available for review COMPARISON: CT pelvis: FINDINGS: No fracture is identified. There is maintenance of height of the vertebral bodies. Alignment is maintained; there is no spondylolisthesis. Pedicles are intact. No degenerative changes are identified. Bony mineralization is within normal limits. Soft tissues are unremarkable. IMPRESSION: 1. Unremarkable lumbar spine x-ray series. RPTAT: HMVK .Balwinder Bolton MD, MD Date Time Electronically viewed and signed by .Balwinder Bolton MD, MD on 02/08/2017 22:34 .K/ CC: KAREN MCCABE PA-C Procedures/[facility] This is a 36-year-old female who presents emergency department today complaining of right-sided flank pain for the past week. Upon review of patient 's medical records patient was seen here 1 week ago for similar complaints. She had a complete workup done at that time that showed blood in her urine however patient indicated that she was on her menstrual cycle at that time. Her CT abdomen pelvis only showed hepatic steatosis. Do not feel the patient requires repeat CT scan at this time. I did repeat basic laboratory workup as well as obtain a renal ultrasound and lumbar spine films Laboratory workup shows an elevated white blood cell count of 13.8. She is not anemic. Platelets are within normal limits. Potassium is mildly decreased otherwise electro lites are within normal limits. Glucose is within normal limits. Liver enzymes are within normal limits. Lipase is within normal limits. UA shows trace leukocyte esterase with no increase in white blood cells. There is 12 microscopic red blood cells. Urine test is negative Renal US shows normal appearance of both kidneys without hydronephrosis or sonographic evidence of renal calculi Lumbar spine films are unremarkable. There is no evidence of acute fracture dislocation. Disc height is within normal limits. Soft tissues are unremarkable Patient has right-sided flank pain of uncertain etiology. She does have some hematuria in her urine and it may be related to kidney stones however patient had a negative CT scan that did not show any stones last week. There are no stones in her kidneys upon renal ultrasound. Patient's back pain may be musculoskeletal and I have explained this to her although patient does not believe that is to be the case. 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 Patient has no evidence of rashes and I do not see evidence of shingles in the patient's skin. She is afebrile and otherwise well-appearing. Low suspicion for cauda equina or abscess. The patient does have a mildly elevated white blood cell count she has no CVA tenderness and there does not appear an infection in her urine I have low suspicion for pyelonephritis. Patient was only complaining of very mild pelvic pain and was not concerned about that. She declined workup for that. Low suspicion for acute surgical abdomen. Patient was given Toradol here in the emergency department patient was still complaining of pain and was therefore given Dennard. She was given a prescription for tramadol, Naprosyn and Flexeril for home. At this time the patient is stable for discharge and outpatient management. Patient should follow up with their PCP in the next 1-2 days. She was given a list of referrals. They may return to the emergency department sooner for any persistent or worsening of symptoms. Patient understood and agreed with the plan. Departure Diagnosis: Primary Impression: Flank pain Condition: KAREN Moore PA-C Feb 08, 2017 20:55
--- NOTE | 2017-02-08 21:04 | RADRPT ---
PROCEDURE: Retroperitoneal ultrasound. CLINICAL INDICATION: Right-sided flank pain, hematuria TECHNIQUE: Mcknight scale and color doppler ultrasound images of the retroperitoneum, kidneys, urinary bladder COMPARISON: CT 02/02/2017; US ABDOMEN 09/24/2016 FINDINGS: Kidneys: Right length (cm) : 11.4 Left length (cm) : 12.4 Right cortical thickness: Normal. Left cortical thickness: Normal. Echogenicity: Normal bilaterally. Hydronephrosis: None. Renal calculi: None. Focal lesions: None. Free fluid/ascites: None. Abdominal aorta: Normal caliber of the visualized segments. Bladder: No focal lesions. Other findings: None. IMPRESSION: Normal appearance of both kidneys without hydronephrosis or sonographic evidence of renal calculi. RPTAT: AADD .Eleno Cummins MD, MD Date Time Electronically viewed and signed by .Eleno Cummins MD, on 02/08/2017 21:04 .B/
[2017-02-08 22:07] LABS: BASOPHILS % 0.3 % (0.0-2.0); EOSINOPHILS # 0.3 10^3/ul (0.0-0.5); HEMATOCRIT 37.6 % (37.0-47.0); HEMOGLOBIN 12.6 g/dl (12.0-16.0); LYMPHOCYTES # 2.9 10^3/ul (0.8-2.9); LYMPHOCYTES % 20.6 % (15.0-51.0); MEAN CORPUSCULAR HEMOGLOBIN 29.9 pg (29.0-33.0); MEAN CORPUSCULAR HGB CONC 33.5 g/dl (32.0-37.0); MEAN CORPUSCULAR VOLUME 89.1 fl (82.0-101.0); MEAN PLATELET VOLUME 10.5 fl (7.4-10.4); MONOCYTE # 1.1 10^3/ul (0.3-0.9); NEUTROPHIL # 9.5 10^3/ul (1.6-7.5); NEUTROPHILS % 68.7 % (39.0-77.0); PLATELET COUNT 287 10^3/UL (140-415); RED BLOOD COUNT 4.22 10^6/ul (4.20-5.40); RED CELL DISTRIBUTION WIDTH 11.9 % (11.5-14.5); WHITE BLOOD COUNT 13.8 10^3/ul (4.8-10.8)
[2017-02-08 22:25] LABS: ALBUMIN 3.9 g/dl (3.3-4.9); ALBUMIN/GLOBULIN RATIO 1.34; BILIRUBIN,INDIRECT 0.1 mg/dl (0-1.1); BILIRUBIN,TOTAL 0.1 mg/dl (0.2-1.3); CALCIUM 9.2 mg/dl (8.4-10.2); CREATININE 0.73 mg/dl (0.44-1.00); POTASSIUM 3.3 mmol/L (3.5-5.1); TOTAL PROTEIN 6.8 g/dl (6.1-8.1)
--- NOTE | 2017-02-08 22:35 | RADRPT ---
PROCEDURE: XR Lumbar Spine. CLINICAL INDICATION: Pain TECHNIQUE: Three views of the lumbar spine are available for review COMPARISON: CT pelvis: FINDINGS: No fracture is identified. There is maintenance of height of the vertebral bodies. Alignment is ma intained; there is no spondylolisthesis. Pedicles are intact. No degenerative changes are identifi ed. Bony mineralization is within normal limits. Soft tissues are unremarkable. IMPRESSION: 1. Unremarkable lumbar spine x-ray series. RPTAT: HMVK .Balwinder Bolton MD, Date Time Electronically viewed and signed by .Balwinder Bolton MD, on 02/08/2017 22:34 .K/
[2017-02-08 23:04] LABS: ADD UMIC YES; UR ASCORBIC ACID 20 mg/dL (NEGATIVE); UR BILIRUBIN (Dip) NEGATIVE (NEGATIVE); UR BLOOD (Dip) 1+ mg/dL (NEGATIVE); UR CLARITY CLEAR (CLEAR); UR COLOR YELLOW (YELLOW); UR GLUCOSE (Dip) NEGATIVE (NEGATIVE); UR KETONES (Dip) NEGATIVE (NEGATIVE); UR LEUKOCYTE ESTERASE (Dip) TRACE Leu/ul (NEGATIVE); UR NITRITE (Dip) NEGATIVE (NEGATIVE); UR RBC 12 /HPF (0-5); UR SPECIFIC GRAVITY (Dip) 1.024 (1.003-1.030); UR SQUAMOUS EPITHELIAL CELL FEW /HPF (FEW); UR TOTAL PROTEIN (Dip) NEGATIVE (NEGATIVE); UR UROBILINOGEN (Dip) NEGATIVE (NEGATIVE)
[2017-02-08] MEDS ORDERED: HYDROCODONE/APAP (5/325) TAB PO ONE (23:30)
[2017-02-08] MEDS ORDERED: NAPR-260 PO (23:33)
[2017-02-08] MEDS ORDERED: TRAM50TA2 PO (23:33)
[2017-02-08] MEDS ORDERED: CYCL-319 PO (23:34)
[2017-02-08 23:49] VITALS: BP 144/78; PULSE 83; RESP 18; TEMP 98
== END 2017-02-08 23:50 | disposition home or self-care (01) ==
LOC: FTE 17:41
DX: R10.2 Pelvic and perineal pain (principal)
CPT/HCPCS: 72100; 76775; 80053; 81001; 85025; 87086; 96374; J1885; Z7502; Z7610

== ENCOUNTER 2018-03-22 11:34 | Outpatient (CLI) | payer MEDICAID ==
[~2018-03-22] VITALS: Ht 152.4 cm; Wt 100.2 kg
[~2018-03-22 11:34] MED LIST changes: +CYCL10TA7 PO; +HYDR-4011 PO; -HYDR-906 PO; -NAPR-260 PO; +NAPR-985 PO; +TRAM50TA2 PO
[2018-03-22 11:57] VITALS: Ht 152.4 cm; Wt 100.2 kg
[2018-03-22] MEDS ORDERED: PREN-93 PO (11:57)
[2018-03-22 11:58] VITALS: BP 117/57; PULSE 90; RESP 18
--- NOTE | 2018-03-22 14:12 | TRIAGE ---
OB Triage Datetime Report Generated by CPN: 03/22/2018 14:12 Datetime: 03/22/2018 12:31 Vaginal Exam Dilatation (cms): 0.0 Exam By: KHEMANI Datetime: 03/22/2018 11:55 Assessment Type: Triage Maternal Assessment Level of Consciousness: Fully Conscious DTR's/Clonus: DTRs 2+; No Clonus Headache: Denies Blurred Vision: No Respiratory Effort: Unlabored; Regular Rhythm; Equal Expansion Breath Sounds, Left: Clear and Equal Breath Sounds, Right: Clear and Equal Nausea/Vomiting: Denies RUQ Epigastric Pain: Denies Lower Extremities Edema: None Degree: None Upper Extremities Edema: None Degree: None Facial Edema: None Fall Risk Assessment History of Falling: (0) No Secondary Diagnosis: (0) No Ambulatory Aid: (0) Bedrest/Nurse Assist IV Therapy: (0) No Gait: (0) Normal/Bedrest/Immobile Mental Status: (0) Oriented to Own Ability Fall Score: 0 Fall Risk Score Definition: No Risk: No action required Datetime: 03/22/2018 11:51 Time of Arrival: 03/22/2018 11:30 EGA: 26.1 Arrived By: Ambulatory Arrived From: Home Chief Complaint: PT HERE C/O UC'S SINCE 0600 Movement: Present Contractions: Irregular Rupture of Membranes: Denies Vaginal Bleeding: None Vaginal Discharge: Denies Recent Sexual Intercouse: Denies Abdominal Trauma: Not Applicable Patient Complaints: None Time Provider Notified: 03/22/2018 12:20 Provider Notified: HADADIAN Initial Plan: EFM/CVL/DUY/UA/SVE Datetime: 03/22/2018 11:49 Labor Evaluation Monitor Mode: External Heart Rate Monitor Mode: External US
--- NOTE | 2018-03-22 18:36 | PN ---
Triage Information Date/Time Reason for visit: Uterine contractions Weeks of Gestation 26 weeks and 1 day /Para Diabetes: none Hypertention: none Additional information 7 years old 003 with single intrauterine at 26 weeks and 1 day with a GERTRUDE of 06/27/2018 complaining of uterine contractions. She states good movement. She denies nausea, vomiting, shortness of breath, chest pain, headache, visual changes, vaginal bleeding or LOF. Objective Vital Signs Date Temp Pulse Resp B/P (MAP) Pulse Ox O2 O2 Flow FiO2 Time Delivery Rate 03/22/18 98.5 90 18 117/57 Room Air 11:58 (77) Heart Rate: 130's Contractions: None Results/Medications Results 24 hrs Laboratory Tests Test 03/22/18 11:40 Urine Color YELLOW Urine Clarity CLOUDY A Urine pH 5.0 Urine Specific [place] 1.021 Urine Ketones NEGATIVE Urine Nitrite NEGATIVE Urine Bilirubin NEGATIVE Urine Urobilinogen NEGATIVE Urine Leukocyte Esterase TRACE A Urine Microscopic RBC 4 Urine Microscopic WBC 9 H Urine Squamous Epithelial Cells MODERATE Urine Calcium Oxalate Crystals MANY A Urine Hemoglobin 1+ H Urine Glucose NEGATIVE Urine Total Protein NEGATIVE Imaging Results There is a single live intrauterine with a heart rate of 137 bpm. position is cephalic. The placenta is anterior. The DUY measures 9.0 cm. The cervix is closed with a length of 3.8 cm. IMPRESSION: 1. The DUY measures 9.0 cm. 2. The cervix is closed with a length of 3.8 cm. Disposition: Discharge Assessment/Plan 37 years old 003 at 26 weeks and 1 day complaining of uterine contractions. heart rate category 1. She had no uterine contraction on monitoring. Urinalysis performed which was within normal limits. Ultrasound performed cervical length of 3.8. DUY of 9. Patient reassured. Sign and symptom of labor, preeclampsia, kick count discussed in detail with patient. She expressed understanding all of her questions answered. She discharged home in stable condition with follow-up with her primary OB. LARA RODNEY Mar 22, 2018 18:36
== END 2018-03-22 14:27 | disposition home or self-care (01) ==
LOC: OBT 11:34 → L-D 11:35 → OBT 14:27
PROVIDERS: ATTEND Obstetrics & Gynecology
DX: O62.9 Abnormality of forces of labor, unspecified (principal); O09.522 Supervision of elderly multigravida, second trimester; Z3A.26 26 weeks gestation of pregnancy
CPT/HCPCS: 76815; 76817; 81001; Z7500; G0463

== ENCOUNTER 2018-03-23 23:30 | Outpatient (CLI) | payer MEDICAID ==
[~2018-03-23] VITALS: Ht 153.7 cm; Wt 101.0 kg
[~2018-03-23 23:30] MED LIST changes: -CYCL10TA7 PO; -HYDR-4011 PO; -IBUP-1542 PO; -NAPR-985 PO; -OMEP20CA16 PO; -ONDA4TAB14 PO; +PREN-93 PO; -TRAM50TA2 PO
[2018-03-24 00:13] VITALS: BP 123/57; PULSE 86; RESP 18
[2018-03-24] MEDS ORDERED: TERBUTALINE 1 MG/ML INJ SC ONE (02:30)
[2018-03-24] MEDS ORDERED: ACETAMINOPHEN 500 MG TAB PO ONE (02:30)
--- NOTE | 2018-03-24 04:17 | TRIAGE ---
OB Triage Datetime Report Generated by CPN: 03/24/2018 04:16 Datetime: 03/24/2018 00:10 Time of Arrival: 03/23/2018 23:28 EGA: 26.3 Arrived By: Wheelchair Arrived From: Home Chief Complaint: c/o constant back pain and irreg cramping beg 1600 Movement: Present Contractions: Irregular Time Contractions Began: 03/23/2018 16:00 Rupture of Membranes: Denies Vaginal Bleeding: None Vaginal Discharge: Denies Recent Sexual Intercouse: Denies Abdominal Trauma: Not Applicable Patient Complaints: Cramping; Back Pain Time Provider Notified: 03/23/2018 23:40 Provider Notified: Dr Horton Initial Plan: EFM,UA,UCED,CVL, Datetime: 03/23/2018 23:56 Stage of : OB Triage Maternal Assessment Level of Consciousness: Fully Conscious DTR's/Clonus: DTRs 2+ Headache: Denies Blurred Vision: No Nausea/Vomiting: Denies RUQ Epigastric Pain: Denies Facial Edema: None Monitor Mode: External Resting Tone [place]: Relaxed Heart Rate FHR Baseline Rate: 145 Monitor Mode: External US Pain Assessment Pain Scale: 5 Pain Presence: Constant Pain Type: Pressure; Ache Pain Location: Abdomen; Back Datetime: 03/22/2018 14:10 Stage of : OB Triage Datetime: 03/22/2018 13:00 Stage of : OB Triage Maternal Assessment Level of Consciousness: Fully Conscious Labor Evaluation Frequency: NONE Monitor Mode: External Resting Tone [place]: Relaxed Heart Rate FHR Baseline Rate: 145 Monitor Mode: External US Variability: Moderate 6-25 bpm Accelerations: 15X15 Decelerations: None Category: Category I Pain Assessment Pain Scale: 0 Pain Goal: 3 Vaginal Exam Membrane Status: Intact Vaginal Bleeding: None Datetime: 03/22/2018 11:55 Fall Risk Assessment Fall Score: 0 Fall Risk Score Definition: No Risk: No action required Datetime: 03/22/2018 11:51 EGA: 26.1
--- NOTE | 2018-03-24 12:01 | PN ---
Triage Information Date/Time 03/24/1801/30/1154 Reason for visit: constant back pain with intermittent lower abdominal cramping pain Weeks of Gestation 26w3d /Para Diabetes: none Hypertention: none Objective Vital Signs Date Temp Pulse Resp B/P (MAP) Pulse Ox O2 O2 Flow FiO2 Time Delivery Rate 03/24/18 98.4 86 18 123/57 Room Air 00:13 (79) Heart Rate: 140's Heart Rate Comments CAT I Contractions: None Results/Medications Results 24 hrs Laboratory Tests Test 03/23/18 21:40 Urine Color YELLOW Urine Clarity SLIGHTLY CLOUDY A Urine pH 6.0 Urine Specific [place] 1.012 Urine Ketones NEGATIVE Urine Nitrite NEGATIVE Urine Bilirubin NEGATIVE Urine Urobilinogen NEGATIVE Urine Leukocyte Esterase TRACE A Urine Microscopic RBC 1 Urine Microscopic WBC 2 Urine Squamous Epithelial Cells FEW Urine Hemoglobin 2+ H Urine Glucose NEGATIVE Urine Total Protein NEGATIVE Imaging Results CVL 5.2 Disposition: Discharge Assessment/Plan A IUP 26w3d lumbago NIL P discharge home positional change to prone position ROBERT GARSIA MD Mar 24, 2018 12:01
== END 2018-03-24 04:12 | disposition home or self-care (01) ==
LOC: L-D 23:30 → OBT 23:30
PROVIDERS: ATTEND Obstetrics & Gynecology
DX: O26.892 Other specified pregnancy related conditions, second trimester (principal); M54.5 Low back pain; R10.30 Lower abdominal pain, unspecified; O09.522 Supervision of elderly multigravida, second trimester; Z3A.26 26 weeks gestation of pregnancy
CPT/HCPCS: 76817; 81001; 87086; 96372; J3105; Z7500; Z7610; G0463

== ENCOUNTER 2018-05-07 22:25 | Outpatient (CLI) | payer MEDICAID ==
[~2018-05-07] VITALS: Ht 154.9 cm; Wt 103.8 kg
[2018-05-07 22:20] VITALS: Ht 154.9 cm; Wt 103.8 kg
[2018-05-07 22:29] VITALS: BP 109/58; PULSE 84; RESP 18
[2018-05-08] MEDS ORDERED: LIDOCAINE/MYLANTA 40 ML BTL PO ONE (02:30)
--- NOTE | 2018-05-08 04:39 | TRIAGE ---
OB Triage Datetime Report Generated by CPN: 05/08/2018 04:39 Datetime: 05/08/2018 04:16 Contraction Comments: External monitors removed Comments: External monitors removed Pain Assessment Pain Scale: 6 Pain Presence: Intermittent Pain Location: Abdomen (Annotations: epigastric pain ) Pain Relief Measures: Comfort Measures Datetime: 05/08/2018 04:00 Monitor Mode: External Duration (sec)2399: none Heart Rate FHR Baseline Rate: 135 Monitor Mode: External US Variability: Moderate 6-25 bpm Accelerations: 15X15 Decelerations: None Category: Category I Datetime: 05/08/2018 03:13 Resting Tone [place]: Relaxed Contraction Comments: No contractions palpated Datetime: 05/08/2018 03:04 Resting Tone [place]: Relaxed Contraction Comments: No contractions palpated Comments: Patient states she feels active movement Pain Assessment Pain Scale: 6 Pain Presence: Intermittent Pain Location: Abdomen (Annotations: epigastric pain) Pain Relief Measures: Comfort Measures Datetime: 05/08/2018 03:00 Labor Evaluation Frequency: none noted Monitor Mode: External Heart Rate FHR Baseline Rate: 125 Monitor Mode: External US Variability: Moderate 6-25 bpm Accelerations: 15X15 Decelerations: None Comments: Frequent loss of contact Datetime: 05/08/2018 02:11 Contraction Comments: no contracions palpated Pain Assessment Pain Scale: 5 Pain Presence: Intermittent Pain Location: Abdomen (Annotations: epigastric pain and lower abdominal pain) Pain Relief Measures: Comfort Measures Datetime: 05/08/2018 02:00 Labor Evaluation Frequency: none noted Monitor Mode: External Heart Rate FHR Baseline Rate: 130 Monitor Mode: External US Variability: Moderate 6-25 bpm Accelerations: 15X15 Decelerations: None Category: Category I Comments: Frequent loss of contact Datetime: 05/08/2018 01:00 Labor Evaluation Frequency: none noted Monitor Mode: External Heart Rate FHR Baseline Rate: 130 Monitor Mode: External US Variability: Moderate 6-25 bpm Accelerations: 15X15 Decelerations: None Category: Category I Comments: Frequent loss of contact Datetime: 05/08/2018 00:06 Comments: Patient states she feels active movement. Pain Assessment Pain Scale: 6 Pain Presence: Intermittent Pain Location: Abdomen (Annotations: epigastric pain) Pain Relief Measures: Comfort Measures Datetime: 05/08/2018 00:00 Labor Evaluation Frequency: none Monitor Mode: External Heart Rate FHR Baseline Rate: 130 Monitor Mode: External US Variability: Moderate 6-25 bpm Accelerations: 15X15 Decelerations: None Category: Category I Comments: Frequent loss of contact Datetime: 05/07/2018 23:00 Labor Evaluation Frequency: none Monitor Mode: External Heart Rate FHR Baseline Rate: 130 Monitor Mode: External US Variability: Moderate 6-25 bpm Accelerations: 15X15 Comments: Frequent loss of contact Datetime: 05/07/2018 22:29 Stage of : OB Triage Assessment Type: Triage Maternal Assessment Level of Consciousness: Fully Conscious DTR's/Clonus: DTRs 2+; No Clonus Headache: Denies Blurred Vision: No Respiratory Effort: Unlabored; Regular Rhythm; Equal Expansion Breath Sounds, Left: Clear and Equal Breath Sounds, Right: Clear and Equal Nausea/Vomiting: Denies RUQ Epigastric Pain: Denies Lower Extremities Edema: None Degree: None Upper Extremities Edema: None Degree: None Facial Edema: None Temperature Route: Oral Fall Risk Assessment History of Falling: (0) No Secondary Diagnosis: (0) No Ambulatory Aid: (0) Bedrest/Nurse Assist IV Therapy: (0) No Gait: (0) Normal/Bedrest/Immobile Mental Status: (0) Oriented to Own Ability Fall Score: 0 Fall Risk Score Definition: No Risk: No action required Comments: Patient states she feels active movement. Pain Assessment Pain Scale: 5 Pain Presence: Intermittent Pain Location: Abdomen (Annotations: epigatric pain ) Pain Relief Measures: Comfort Measures Datetime: 05/07/2018 22:28 Monitor Mode: External Monitor Mode: External US Datetime: 05/07/2018 22:20 Time of Arrival: 05/07/2018 22:20 EGA: 32.5 Arrived By: Wheelchair Arrived From: Home Chief Complaint: epigastric pain and lower abdominal pain since 02/24/19 at 1000, diarrhea Movement: Present Contractions: Irregular Rupture of Membranes: Denies Vaginal Bleeding: None Vaginal Discharge: Denies Recent Sexual Intercouse: Denies Abdominal Trauma: Not Applicable Patient Complaints: Vomiting; Epigastric Pain; Other Time Provider Notified: 05/07/2018 23:02 Provider Notified: Dr. Espino Initial Plan: EFM x2 Datetime: 03/24/2018 00:10 EGA: 26.3 Datetime: 03/22/2018 11:55 Fall Score: 0 Fall Risk Score Definition: No Risk: No action required Datetime: 03/22/2018 11:51 EGA: 26.1
--- NOTE | 2018-05-08 04:48 | PN ---
Triage Information Date/Time Reason for visit: Upper abdominal pain, nausea and vomiting Weeks of Gestation 32 weeks and 6 days /Para G [id number] Diabetes: none Hypertention: none Objective Vital Signs Date Temp Pulse Resp B/P (MAP) Pulse Ox O2 O2 Flow FiO2 Time Delivery Rate 05/07/18 98.6 84 18 109/58 Room Air 22:29 (75) Heart Rate: 130's Contractions: None Results/Medications Results 24 hrs Laboratory Tests Test 05/07/18 22:20 Urine Color YELLOW Urine Clarity SLIGHTLY CLOUDY A Urine pH 7.0 Urine Specific [place] 1.010 Urine Ketones NEGATIVE Urine Nitrite NEGATIVE Urine Bilirubin NEGATIVE Urine Urobilinogen NEGATIVE Urine Leukocyte Esterase 1+ H Urine Microscopic RBC 2 Urine Microscopic WBC 1 Urine Squamous Epithelial Cells FEW Urine Amorphous Crystals FEW A Urine Bacteria FEW A Urine Hemoglobin 2+ H Urine Glucose NEGATIVE Urine Total Protein NEGATIVE Imaging Results FINDINGS: Liver Length: 18.6 cm. Parenchyma: Echodense on the basis of hepatic steatosis. No suspicious mass or cyst. Hepatic veins: Appropriate direction of normal triphasic flow. Portal vein: Patent with normal hepatopetal flow. Biliary tree Gallbladder: No distension. No wall thickening. No pericholecystic fluid. No sludge or stones. Intrahepatic bile duct: Not dilated. Common bile duct: 3.99 mm. Pancreas: Obscured. Right kidney Length: 11.2 cm. Parenchyma: No stone or hydronephrosis. Free fluid: None. Additional comment: None. IMPRESSION: 1. Hepatomegaly with echodense hepatic parenchyma likely on the basis of hepatic steatosis. 2. Unremarkable gallbladder and common bile duct. Disposition: Discharge Assessment/Plan 37-year-old with single intrauterine at 32 weeks and 6 days with a GERTRUDE of 06/26/2018 complaining of upper abdominal pain, nausea, vomiting and diarrhea. She states good movement. She denies shortness of breath, chest pain, headache, visual changes, vaginal bleeding or LOF. -FHR: No sign of metabolic acidosis- Category I -Contractions: None -Ultrasound performed: DUY of 7.035, biophysical profile 8 out of 8. Abdominal ultrasound performed: Hepatic steatosis, no gallstones seen -Contractions: None -She states her last vomiting was around noon, she had dinner without any vomiting after that. Possible she has severe viral gastroenteritis. Recommend increase fluid intake, take Pedialyte or Gatorade. Prescription for Zofran as needed given. -Symptoms and sign of labor, preeclampsia, kick count discussed with patient, she voiced understanding. All of her questions answered. -Patient was discharged home in stable condition with the appropriate discharge instructions provided. I would like patient to have close follow-up with her primary physician or outpatient clinic in 1-2 days or return to triage for worsening symptoms or any other urgent concerns. 2) amniotic fluid of 7.03 : Recommend increase fluid intake and come back in 2 days for repeat DUY LARA RODNEY May 08, 2018 04:48
== END 2018-05-08 04:31 | disposition home or self-care (01) ==
LOC: OBT 22:25 → L-D 22:26 → OBT 05-08 04:31
PROVIDERS: ATTEND Obstetrics & Gynecology
DX: O26.893 Other specified pregnancy related conditions, third trimester (principal); Z3A.32 32 weeks gestation of pregnancy; O21.0 Mild hyperemesis gravidarum
CPT/HCPCS: 76705; 76818; 81001; Z7500; Z7610; G0463

== ENCOUNTER 2018-05-11 15:10 | Outpatient (CLI) | payer MEDICAID ==
[~2018-05-11] VITALS: Ht 154.9 cm; Wt 104.8 kg
[2018-05-11 15:21] VITALS: Ht 154.9 cm; Wt 104.8 kg
--- NOTE | 2018-05-11 17:23 | TRIAGE ---
OB Triage Datetime Report Generated by CPN: 05/11/2018 17:23 Datetime: 05/11/2018 17:03 Maternal Assessment Level of Consciousness: Fully Conscious DTR's/Clonus: DTRs 1+ Headache: Denies Breath Sounds, Left: Clear and Equal Breath Sounds, Right: Clear and Equal Nausea/Vomiting: Denies RUQ Epigastric Pain: Denies Labor Evaluation Frequency: NONE Monitor Mode: External Resting Tone [place]: Relaxed Heart Rate FHR Baseline Rate: 135 Monitor Mode: External US Variability: Moderate 6-25 bpm Accelerations: 15X15 Decelerations: None Pain Assessment Pain Presence: None/Denies Pain Type: N/A Vaginal Exam Membrane Status: Intact Datetime: 05/11/2018 16:19 Maternal Assessment Level of Consciousness: Fully Conscious DTR's/Clonus: DTRs 1+ Headache: Denies Blurred Vision: No Respiratory Effort: Unlabored Breath Sounds, Left: Clear and Equal Breath Sounds, Right: Clear and Equal Nausea/Vomiting: Denies RUQ Epigastric Pain: Denies Facial Edema: None Labor Evaluation Frequency: NONE Monitor Mode: External Resting Tone [place]: Relaxed Heart Rate FHR Baseline Rate: 135 Monitor Mode: External US Variability: Moderate 6-25 bpm Accelerations: 15X15 Decelerations: None Category: Category I Pain Assessment Pain Presence: None/Denies Pain Type: N/A Vaginal Exam Membrane Status: Intact Datetime: 05/11/2018 15:07 Time of Arrival: 05/11/2018 15:07 EGA: 33.2 Arrived By: Ambulatory Chief Complaint: NST AND BPP FOR LOW DUY Movement: Present Contractions: Denies/Absent Rupture of Membranes: Denies Vaginal Discharge: Denies Recent Sexual Intercouse: Denies Abdominal Trauma: Not Applicable Additional Patient Complaints: NONE Initial Plan: BPP, NST Datetime: 05/07/2018 22:29 Fall Risk Assessment Fall Score: 0 Fall Risk Score Definition: No Risk: No action required Datetime: 05/07/2018 22:20 EGA: 32.5 Datetime: 03/24/2018 00:10 EGA: 26.3 Datetime: 03/22/2018 11:55 Fall Risk Assessment Fall Score: 0 Fall Risk Score Definition: No Risk: No action required Datetime: 03/22/2018 11:51 EGA: 26.1
--- NOTE | 2018-07-19 23:26 | PN ---
Triage Information Date/Time Reason for visit: Follow-up ultrasound for amniotic fluid index Weeks of Gestation 33 weeks and 2 days /Para Diabetes: none Hypertention: none Objective Heart Rate: 140's Contractions: None Disposition: Discharge Assessment/Plan 38 years old 3 para 2-0-0-2 with single intrauterine at 33 weeks and 2 days presented to triage for follow-up ultrasound for amniotic fluid index. She states good movement. She denies nausea, vomiting, shortness of breath, chest pain, headache, visual changes, vaginal bleeding or LOF. -FHR: No sign of metabolic acidosis- Category I -Contractions: None -Ultrasound performed: Normal DUY-11.5 -Symptoms and sign of labor, preeclampsia, kick count discussed with patient, she voiced understanding. All of her questions answered. -Patient was discharged home in stable condition with the appropriate discharge instructions provided. I would like patient to have close follow-up with her primary physician or outpatient clinic in 1-2 days or return to triage for worsening symptoms or any other urgent concerns. Late entry note. Patient seen on 05/11/2018 LARA RODNEY July 19, 2018 23:26
== END 2018-05-11 17:14 | disposition home or self-care (01) ==
LOC: OBT 15:10 → L-D 15:12 → OBT 17:14
PROVIDERS: ATTEND Obstetrics & Gynecology
DX: O41.93X0 Disorder of amniotic fluid and membranes, unspecified, third trimester, not applicable or unspecified (principal); Z3A.33 33 weeks gestation of pregnancy
CPT/HCPCS: 76818; Z7500; G0463

== ENCOUNTER 2018-05-19 09:59 | Inpatient (IN) | payer MEDICAID ==
[~2018-05-19] VITALS: Ht 157.5 cm; Wt 102.4 kg
[2018-05-19 10:53] VITALS: BP 111/58; PULSE 88; Ht 157.5 cm; Wt 102.4 kg
[2018-05-19] MEDS: LACTATED RINGER'S 1,000 ML IV SCH ×3 (14:37→22:11)
--- NOTE | 2018-05-19 16:47 | HP ---
Date/Time of Note Date/Time of Note DATE: 05/19/18 TIME: 16:43 OB - History Hx of Present Free Text/Dictation 37y.o at 34w3d here for f/u DUY for hx of low DUY today BPP 10/19 DUY only 5.5 from 11.5 on 05/11/18 admit for hydration and repeat DUY in am Chief Complaint: low DUY Estimated Due Date: Jun 26, 2018 : 4 Para: 3 Spontaneous : 0 Therapeutic : 0 Care: Other Ultrasounds: Other Obstetrical Complications: None Medical Complications: None Past Family/Social History * Past Medical, Surgical, Family and Obstetric Histories reviewed from chart. Blood Type: Unknown Rubella: unknown RPR/VDRL: Unknown GBS Status: Unknown HBsAG: Unknown OB Admission Exam Vital Signs Vital Signs Vital Signs Date Temp Pulse Resp B/P (MAP) Pulse Ox O2 O2 Flow FiO2 Time Delivery Rate 05/19/18 98.0 88 111/58 10:53 (75) Physical Exam HEENT: WNL Heart: Rhythm Normal Lungs: Clear, Equal Abdomen: WNL Extremities: Normal Reflexes: Normal Cervical Dilatation: other Effacement: Other Station: Other Membranes: Intact Amniotic Fluid: Unevaluable Heart Rate: 140's Accelerations: Accelerations Present Decelerations: No Decelerations Varibility: Moderate Contractions on Admission: None OB Assessment/Plan Other Assessment: IUP 34w3d oligohydramnios Plan: Other (IV hydration and repeat DUY in AM) ROBERT GARSIA MD May 19, 2018 16:47
[2018-05-20] MEDS: LACTATED RINGER'S 1,000 ML IV SCH ×2 (02:37→06:44)
--- NOTE | 2018-05-20 08:53 | PN ---
Date/Time of Note Date/Time of Note DATE: 05/20/18 TIME: 08:49 OB Subjective Subjective Subjective Hospital day: 2 Patient seen and examined. She states good movement. She denies nausea, vomiting, shortness of breath, chest pain, abdominal pain between contractions, headache, visual changes, vaginal bleeding or LOF. OB Objective Objective Objective General: Patient appears well, alert and oriented, NAD, appropriate mood and affect ABD: gravid, soft, non-tender. Back: No CVA tenderness (B/L) LE: Mild edema. No clubbing, cyanosis, edema, thigh or calf tenderness bilaterally FHT: 130 bpm , moderate variability with acceleration, no deceleration-category I OB Assessment/Plan Other plan: 37-year-old with single intrauterine at 34 weeks and 4 days with oligohydramnios. She had an ultrasound on 05/11/2018 with DUY of 11.5. DUY of 5.5 cm on yesterday's ultrasound. She was admitted for IV hydration and repeat ultrasound today. - FHR: Reassuring. No sign of metabolic acidosis- Category I - Repeat ultrasound today. If DUY is within normal limits she may discharge h ome with follow-up NST and DUY in 2 days. If still has oligo, continue in-house observation. Consider dexamethasone 6 mg every 12 hours for fourth dose. LARA RODNEY May 20, 2018 08:53
--- NOTE | 2018-05-20 10:32 | PD.PPDC ---
DISPENSING LEAD Discharge Instruction Diagnosis [id number] Final Diagnosis: Ddvhh0m IUP 35w oligohydramnios resolved Condition [id number] Patient Condition: Paati3p Good Diet [id number] Diet: Xkgsf8u Resume Regular Diet Activity/Restrictions [id number] Activity: Emrgy7g Normal Activity Follow-up Follow-up with Physician: 1, Week/Weeks ROBERT GARSIA MD May 20, 2018 10:32
--- NOTE | 2018-05-20 10:35 | DS ---
Date/Time of Note Date/Time of Note DATE: 05/20/18 TIME: 10:33 Obstetrical Discharge Record Final Diagnosis Final Diagnosis: not delivered Other Final Diagnosis IUP 34w3d oligohydramnios resolved Complications Other (oligohydramnios) Augmentation: No Induction: No Rupture of Membranes: No Condition on Discharge Physical Assessment Last Vitals: vss afebrile Voiding: Yes Bowel Movement: Yes Breast: Soft, non-tender Fundus: Other () Abdomen and Incision: Episiotomy: n/a Calf Tenderness: No Patient Condition: Stable ROBERT GARSIA MD May 20, 2018 10:35
== END 2018-05-20 11:00 | disposition home or self-care (01) | DRG 833 ==
LOC: OBT 09:59 → L-D 10:00 → PP1 12:30 → OBT 12:30 → PP1 14:24
PROVIDERS: ADMIT Obstetrics & Gynecology; ATTEND Obstetrics & Gynecology
DX: O41.03X0 Oligohydramnios, third trimester, not applicable or unspecified (principal); O09.523 Supervision of elderly multigravida, third trimester; Z3A.34 34 weeks gestation of pregnancy
CPT/HCPCS: 76815; 76818; G0463; J7120

== ENCOUNTER 2018-05-23 08:22 | Outpatient (CLI) | payer MEDICAID ==
[~2018-05-23] VITALS: Ht 160 cm; Wt 102.7 kg
[2018-05-23 08:29] VITALS: Ht 160 cm; Wt 102.7 kg
[2018-05-23] MEDS ORDERED: LACTATED RINGER'S 250 ML IV ONE (10:30)
--- NOTE | 2018-05-23 13:31 | PN ---
Triage Information Date/Time Reason for visit: Low DUY fo0r NST BPP Weeks of Gestation 35+ /Para n/a Diabetes: none Hypertention: none Objective Heart Rate: 140's Contractions: None Results/Medications Results 24 hrs Laboratory Tests Test 05/23/18 08:31 Membranes Rupture NEGATIVE Disposition: Discharge Assessment/Plan Received IV hydration last DYU 9.6 ROM plus test negative Discharged with precautions Questions answered Follow up with provider ERICKA CHRISTIANSON M.D. May 23, 2018 13:31
== END 2018-05-23 13:30 | disposition home or self-care (01) ==
LOC: OBT 08:22 → L-D 08:24 → OBT 13:30
PROVIDERS: ATTEND Obstetrics & Gynecology
DX: O36.8130 Decreased fetal movements, third trimester, not applicable or unspecified (principal); Z3A.35 35 weeks gestation of pregnancy
CPT/HCPCS: 36415; 76815; 76818; 84112; 96360; J7120; Z7500; G0463

== ENCOUNTER 2018-06-10 22:10 | Outpatient (CLI) | payer MEDICAID ==
[~2018-06-10] VITALS: Ht 157.5 cm; Wt 106.2 kg
[2018-06-10 22:26] VITALS: Ht 157.5 cm; Wt 106.2 kg
[2018-06-11] MEDS ORDERED: LACTATED RINGER'S 1,000 ML IV* PRN (00:30)
--- NOTE | 2018-06-11 02:39 | TRIAGE ---
OB Triage Datetime Report Generated by CPN: 06/11/2018 02:39 Datetime: 06/11/2018 02:34 Stage of : OB Triage Datetime: 06/11/2018 01:54 Comments: CONT MONITORING WITH LOSS OF CONTACT D/T MATERNAL HABITUS Datetime: 06/11/2018 01:26 Comments: continuous monitorig with loss of contact d/t maternal habitus and movement Datetime: 06/11/2018 01:00 Labor Evaluation Frequency: x2 Monitor Mode: External Pattern: Normal: <= 5 Contractions in 10 Minutes Heart Rate FHR Baseline Rate: 135 Monitor Mode: External US FHR Baseline Changes: No Baseline Change Variability: Moderate 6-25 bpm Datetime: 06/11/2018 00:37 Monitor Mode: External US Datetime: 06/10/2018 22:45 Monitor Mode: External US Comments: RN AT BEDSIDE HOLDING MONITORING TO OBTAIN TRACE. CONTINUOUS MONITORING WITH LOSS OF CONT ACT D/T MATERNAL HABITUS Datetime: 06/10/2018 22:34 Comments: CALLED FOR SECONDARY RN TO ASSIST WITH OBTAIN FHT Datetime: 06/10/2018 22:20 Stage of : OB Triage Temperature Route: Oral Datetime: 06/10/2018 22:18 FHR Baseline Changes: No Baseline Change Comments: CONTINUOUS MONITORING WITH LOSS OF CONTACT D/T MATERNAL HABITUS, MORBIDLY OBESE WITH LARG E PANNUS Datetime: 06/10/2018 22:17 Monitor Mode: Palpation Resting Tone [place]: Relaxed Datetime: 06/10/2018 22:14 Stage of : OB Triage Assessment Type: Triage Maternal Assessment DTR's/Clonus: DTRs 2+; No Clonus Headache: Denies Blurred Vision: No Respiratory Effort: Unlabored; Regular Rhythm; Equal Expansion Nausea/Vomiting: Denies RUQ Epigastric Pain: Denies Facial Edema: None Fall Risk Assessment History of Falling: (0) No Secondary Diagnosis: (0) No Ambulatory Aid: (0) Bedrest/Nurse Assist IV Therapy: (0) No Gait: (0) Normal/Bedrest/Immobile Mental Status: (0) Oriented to Own Ability Fall Score: 0 Fall Risk Score Definition: No Risk: No action required Datetime: 06/10/2018 22:13 Stage of : OB Triage Vaginal Exam Dilatation (cms): 1.0 Effacement (%): 40 Station: -3 Exam By: darin rn Datetime: 06/10/2018 22:06 Time of Arrival: 06/10/2018 22:06 EGA: 37.6 Arrived By: Wheelchair Arrived From: Home Chief Complaint: UC'S SINCE 1600 Movement: Present Contractions: Occasional Rupture of Membranes: Denies Vaginal Discharge: Denies Recent Sexual Intercouse: Denies Abdominal Trauma: Not Applicable Patient Complaints: Contractions Initial Plan: EFM, CALL OB Datetime: 05/25/2018 13:49 Time of Arrival: 06/10/2018 22:06 EGA: 37.6 Arrived By: Wheelchair Arrived From: Home Chief Complaint: UC'S SINCE 1600 Movement: Present Contractions: Occasional Patient Complaints: Contractions Datetime: 05/20/2018 07:48 Fall Score: 20 Fall Risk Score Definition: No Risk: No action required Datetime: 05/19/2018 19:36 Fall Score: 20 Fall Risk Score Definition: No Risk: No action required Datetime: 05/19/2018 16:25 Fall Score: 0 Fall Risk Score Definition: No Risk: No action required Datetime: 05/19/2018 10:50 Fall Score: 0 Fall Risk Score Definition: No Risk: No action required Datetime: 05/19/2018 10:48 EGA: 34.5 Datetime: 05/11/2018 15:07 EGA: 33.4 Datetime: 05/07/2018 22:29 Fall Score: 0 Fall Risk Score Definition: No Risk: No action required Datetime: 05/07/2018 22:20 EGA: 33.0 Datetime: 03/24/2018 00:10 EGA: 26.5 Datetime: 03/22/2018 11:55 Fall Score: 0 Fall Risk Score Definition: No Risk: No action required Datetime: 03/22/2018 11:51 EGA: 26.3
--- NOTE | 2018-06-11 02:40 | PN ---
Triage Information Date/Time June 11, 2018 Reason for visit: Uterine contractions Weeks of Gestation 38w /Para 4/3 Diabetes: none Hypertention: none Additional information Pt reports contractions since 1600 on 06/10. No bleeding or leaking. Mild to moderate in intenisty. PMHx: none. PSHx: none. POBHx: x 3. NKDA. Objective 131/63 T= 97 Heart Rate: 130's Heart Rate Comments Accels to 160 BPM. No decels. Contractions: 6-10 Minutes Apart (mild) Exam 4-%/1/-3 Results/Medications Medications Current Medications Lactated Ringer's 1,000 ml @ 125 mls/hr Q8H PRN IV* IV HYDRATION Last administered on 06/11/18at 00:52; Admin Dose 125 MLS/HR; Start 06/11/18 at 00:30 Imaging Results BPP 8/8 with an DUY 0f 6.3. Disposition: Discharge Assessment/Plan A: IUP at 38w. False labor. Low, normal DUY. P: Pt was given a liter of IVF's. She was comfortable at all times. She was told to rest tomorrow and drink a lot of fluids and to return 06/12 for an DUY recheck. Labor precautions were reviewed. KRISTIE JUAREZ MD Jun 11, 2018 02:40
== END 2018-06-11 02:34 | disposition home or self-care (01) ==
LOC: L-D 22:10 → SDS 22:10 → OBT 22:10
PROVIDERS: ATTEND Obstetrics & Gynecology
DX: O47.1 False labor at or after 37 completed weeks of gestation (principal); O09.523 Supervision of elderly multigravida, third trimester; Z3A.38 38 weeks gestation of pregnancy
CPT/HCPCS: 36415; 76818; 96360; 96361; Z7500; G0463

== ENCOUNTER 2018-06-20 22:04 | Inpatient (IN) | payer MEDICAID ==
[~2018-06-20] VITALS: Ht 154.9 cm; Wt 107.0 kg
[2018-06-20 22:22] VITALS: BP 121/70; PULSE 104; RESP 19; Ht 154.9 cm; Wt 107.0 kg
--- NOTE | 2018-06-20 22:57 | HP ---
Date/Time of Note Date/Time of Note DATE: 06/20/18 TIME: 22:56 OB - History Hx of Present Chief Complaint: contractions Estimated Due Date: Jun 25, 2018 : 4 Para: 3 Spontaneous : 0 Therapeutic : 0 Care: Good Care Ultrasounds: Normal mid trimester US Obstetrical Complications: None Medical Complications: None Past Family/Social History * Past Medical, Surgical, Family and Obstetric Histories reviewed from chart. GBS Status: Negative OB Admission Exam Vital Signs Vital Signs Vital Signs Date Temp Pulse Resp B/P (MAP) Pulse Ox O2 O2 Flow FiO2 Time Delivery Rate 06/20/18 99.0 104 19 121/70 Room Air 22:22 (87) Physical Exam HEENT: WNL Heart: Rhythm Normal Lungs: Clear, Equal Abdomen: WNL Extremities: Normal Reflexes: Normal Cervical Dilatation: 3cm Effacement: 50% Station: -1 Membranes: Ruptured Amniotic Fluid: Clear Heart Rate: 120's Accelerations: Accelerations Present Decelerations: No Decelerations Varibility: Moderate OB Assessment/Plan Reason for admission: active labor, rupture of membranes Plan: Expectant Management RANGEL MEJIA MD Jun 20, 2018 22:57
[2018-06-20] MEDS ORDERED: LACTATED RINGER'S 1,000 ML IV SCH (22:59)
[2018-06-20] MEDS ORDERED: LIDOCAINE 1% (MPF) 30 ML INJ INJ PRN (23:00)
[2018-06-20] MEDS ORDERED: METHYLERGONOVINE 0.2 MG INJ IM PRN (23:00)
[2018-06-20] MEDS ORDERED: IBUPROFEN 600 MG TAB PO PRN (23:00)
[2018-06-20] MEDS ORDERED: MISOPROSTOL 200 MCG TAB PR PRN (23:00)
[2018-06-20] MEDS ORDERED: OXYTOCIN 30 UNITS/LR 500 ML IV PRN (23:00)
[2018-06-20] MEDS ORDERED: CARBOPROST 250 MCG INJ IM PRN (23:00)
[2018-06-20] MEDS ORDERED: OXYTOCIN 30 UNITS/LR 500 ML IV SCH ×2 (23:00)
[2018-06-20] MEDS ORDERED: BUTORPHANOL 2 MG INJ IV PRN (23:00)
--- NOTE | 2018-06-21 00:17 | PREAC ---
Date/Time of Note Date/Time of Note DATE: 06/21/18 TIME: 00:16 Anesthesia Eval and Record Evaluation Time Pre-Procedure Interview DATE: 06/21/18 TIME: 00:16 Age 37 Sex female NPO: 8 hrs Preoperative diagnosis labor pain Planned procedure labor epidural Past Medical History Past Medical History: Includes GI: Morbid obesity Surgery & Anesthesia Issues No known issue Meds Anticoagulation: No Beta Cathy within 24 hr: No Reason Beta Cathy not given: Pt. not on B-Cathy Reported Medications Vit No.124/Iron/FA ( Vitamin Tablet) 1 Each Tablet, 1 EACH PO DAILY, TAB 03/22/18 Current Medications Lactated Ringer's 1,000 ml @ 125 mls/hr Q8H IV ; Start 06/20/18 at 22:59 Butorphanol Tartrate (Stadol) 2 mg Q2H PRN IV .PAIN; Start 06/20/18 at 23:00 Lidocaine (Xylocaine 1% (Mpf)) 30 ml ONCE PRN INJ .EPISIOTOMY; Start 06/20/18 at 23:00 Oxytocin/Lactated Ringer's 500 ml @ 500 mls/hr ONCE POST IV ; Start 06/20/18 at 23:00 Oxytocin/Lactated Ringer's 500 ml @ 125 mls/hr POST IV ; Start 06/20/18 at 23:00 Ibuprofen (Motrin) 600 mg ONCE PRN PO .PAIN 1-5; Start 06/20/18 at 23:00 Oxytocin/Lactated Ringer's 500 ml @ 0 mls/hr ONCE PRN IV .VAGINAL BLEEDING; Start 06/20/18 at 23:00 Methylergonovine Maleate (Methergine) 0.2 mg ONCE PRN IM .VAGINAL BLEEDING; Start 06/20/18 at 23:00 Carboprost Tromethamine (Hemabate) 250 mcg ONCE PRN IM .VAGINAL BLEEDING; Start 06/20/18 at 23:00 Misoprostol (Cytotec) 1,000 mcg ONCE PRN NV .VAGINAL BLEEDING; Start 06/20/18 at 23:00 Meds reviewed: Yes Allergies Coded Allergies: No Known Allergy (Unverified , 06/20/18) Allergies Reviewed: Yes Labs/Studies Labs Reviewed: Reviewed by anesthesiologist Result Diagram: 06/20/18 3595 Laboratory Tests 06/20/18 23:15 test: Positive Pre-procedure Exam Last vitals Vital Signs Date Temp Pulse Resp B/P (MAP) Pulse Ox O2 O2 Flow FiO2 Time Delivery Rate 06/20/18 99.0 104 19 121/70 Room Air 22:22 (87) Airway: Adequate mouth opening, Adequate thyromental dist Mallampati: Mallampati III Teeth: Normal Lung: Normal Heart: Normal ASA Physical Status ASA physical status: 3 Emergency: None Planned Anesthetic Neuraxial: Epidural Planned Pain Management Epidural, Parenteral pain med, Other neuraxial med Pre-operative Attestations Prior to commencing anesthesia and surgery, the patient was re-evaluated, there was verification of: *The patient's identity *The results of appropriate recent lab work and preoperative vital signs *The above evaluation not changing prior to induction *Anesthetic plan, risk benefits, alternative and complications discussed with patient/family; questions answered; patient/family understands, accepts and wishes to proceed. FATIMAH AUGUSTIN MD Jun 21, 2018 00:17
[2018-06-21] MEDS ORDERED: ZOLPIDEM 5 MG TAB PO PRN (00:30)
[2018-06-21] MEDS ORDERED: HYDROmorphONE 0.5 MG/0.5 ML SYG IV PRN ×2 (00:30)
[2018-06-21] MEDS ORDERED: KETOROLAC 30 MG INJ IV PRN (00:30)
[2018-06-21] MEDS ORDERED: ONDANSETRON 4 MG INJ IV PRN (00:30)
[2018-06-21] MEDS ORDERED: NALOXONE (0.4 MG/ML) INJ IV PRN (00:30)
[2018-06-21] MEDS ORDERED: DIPHENHYDRAMINE 50 MG INJ IV PRN (00:30)
[2018-06-21] MEDS ORDERED: FENTAnyl 2MCG/ML-ROPIV 0.2% 100 ML BAG EPI SCH (00:30)
--- NOTE | 2018-06-21 01:23 | LDN ---
Date/Time of Note Date/Time of Note DATE: 06/21/18 TIME: 01:21 Delivery Summary Weeks of Gestation 39 weeks Placenta Delivered: Spontaneously Meconium: Thick Episiotomy: No Perineal laceration: 0 Anesthesia type: Epidural Estimated blood loss: 200 Sponge & Needle done & correct: Yes All needle counts correct: Yes Any foreign bodies felt in the: No Delivery Information Sex Infant Sex: female Apgars 1 Minute: 8 5 Minute: 9 Suctioning Nose & mouth suctioned at anita: No Umbilical Cord Umbilical cord with: 3 Vessels Cord presentations: no nuchal cord Cord Blood was obtained: Yes Mother & Baby Disposition Disposition Mom & Baby to Maternity; Good: Yes RANGEL MEJIA MD Jun 21, 2018 01:23
[2018-06-21 03:05] VITALS: BP 117/66; PULSE 102; RESP 21
[2018-06-21] MEDS ORDERED: MISOPROSTOL 200 MCG TAB PR PRN (03:30)
[2018-06-21] MEDS ORDERED: HYDROCODONE/APAP (5/325) TAB PO PRN (03:30)
[2018-06-21] MEDS ORDERED: OXYTOCIN 30 UNITS/LR 500 ML IV PRN (03:30)
[2018-06-21] MEDS ORDERED: CARBOPROST 250 MCG INJ IM PRN (03:30)
[2018-06-21] MEDS ORDERED: BENZOCAINE 20% 56 ML SPRAY TOP PRN (03:30)
[2018-06-21] MEDS ORDERED: WITCH HAZEL/GLYCERIN PAD PR PRN (03:30)
[2018-06-21] MEDS ORDERED: DIBUCAINE 1% 30 GM OINT TOP PRN (03:30)
[2018-06-21] MEDS ORDERED: METHYLERGONOVINE 0.2 MG INJ IM PRN (03:30)
[2018-06-21] MEDS ORDERED: ACETAMINOPHEN 325 MG TAB PO PRN (03:30)
[2018-06-21 04:00] VITALS: BP 114/80; PULSE 102; RESP 20
--- NOTE | 2018-06-21 04:30 | PAC ---
Date/Time of Note Date/Time of Note DATE: 06/21/18 TIME: 04:30 Post-Anesthesia Notes Post-Anesthesia Note Last documented vital signs Vital Signs Date Temp Pulse Resp B/P (MAP) Pulse Ox O2 O2 Flow FiO2 Time Delivery Rate 06/21/18 98.3 102 20 114/80 Room Air 04:00 (91) Activity: WNL Respiratory function: WNL Cardiovascular function: WNL Mental status: Baseline Pain reasonably controlled: Yes Hydration appropriate: Yes Nausea/Vomiting absent: Yes FATIMAH AUGUSTIN MD Jun 21, 2018 04:30
[2018-06-21] MEDS: LACTATED RINGER'S 1,000 ML IV* SCH ×2 (05:43→11:12)
[2018-06-21] MEDS: IBUPROFEN 600 MG TAB PO SCH ×4 (05:43→23:21)
--- NOTE | 2018-06-21 05:49 | TRIAGE ---
OB Triage Datetime Report Generated by CPN: 06/21/2018 05:49 Datetime: 06/21/2018 02:15 Stage of : Recovery Datetime: 06/21/2018 02:10 Stage of : Recovery Pain Assessment Pain Scale: 0 Pain Presence: None/Denies Pain Type: N/A Datetime: 06/21/2018 01:54 Stage of : Recovery Pain Assessment Pain Scale: 0 Pain Presence: None/Denies Pain Type: N/A Datetime: 06/21/2018 01:40 Stage of : Recovery Pain Assessment Pain Scale: 0 Pain Presence: None/Denies Pain Type: N/A Datetime: 06/21/2018 01:24 Stage of : Recovery Pain Assessment Pain Scale: 0 Pain Presence: None/Denies Pain Type: N/A Datetime: 06/21/2018 01:11 Stage of : Recovery Temperature Route: Oral Pain Assessment Pain Scale: 0 Pain Presence: None/Denies Pain Type: N/A Datetime: 06/21/2018 01:00 Stage of : Labor Labor Evaluation Frequency: 2-3 Monitor Mode: External Duration (sec)2399: 50-60 Quality: Strong Pattern: Normal: <= 5 Contractions in 10 Minutes Resting Tone [place]: Relaxed Interventions: Oxygen Applied; IV Bolus; Sterile Vaginal Exam Heart Rate FHR Baseline Rate: indeterminate Monitor Mode: External US FHR Baseline Changes: No Baseline Change Variability: Moderate 6-25 bpm Accelerations: 15X15 Decelerations: Late; Variable Category: Category II Comments: points of loss of contact Pain Assessment Pain Scale: 0 Pain Presence: None/Denies Pain Type: N/A Pain Relief Measures: Epidural Given Datetime: 06/21/2018 00:54 Vaginal Exam Dilatation (cms): 10.0 Effacement (%): 100 Station: 1 Exam By: Adair Madison RN Datetime: 06/21/2018 00:53 Interventions: Oxygen Applied; IV Bolus Datetime: 06/21/2018 00:30 Stage of : Labor Monitor Mode: Palpation Quality: Strong Pattern: Normal: <= 5 Contractions in 10 Minutes Resting Tone [place]: Relaxed Contraction Comments: pt getting epidural during this time Heart Rate FHR Baseline Rate: 145 Monitor Mode: External US FHR Baseline Changes: No Baseline Change Variability: Moderate 6-25 bpm Accelerations: 15X15 Decelerations: unknown, lost of contact due to pt receiving an epidural Category: Category II Comments: points of loss of contact due to patient getting an epidural Pain Assessment Pain Scale: 8 Pain Presence: Intermittent Pain Type: Contraction Pain Location: Abdomen; Back; Perineum Pain Relief Measures: Epidural Given Datetime: 06/21/2018 00:24 Vaginal Exam Dilatation (cms): 9.5 Effacement (%): 100 Station: -2 Exam By: DR. FARRAR Datetime: 06/21/2018 00:14 Vaginal Exam Dilatation (cms): 8.0 Effacement (%): 100 Station: -2 Exam By: RUTH PRETTY Vaginal Bleeding: Normal Show Cervix, Consistency: Soft Cervix, Position: Midposition Presentation 'A': Cephalic Datetime: 06/21/2018 00:03 Vaginal Exam Dilatation (cms): 5.0 Effacement (%): 100 Station: -2 Exam By: RUTH PRETTY Vaginal Bleeding: None Cervix, Consistency: Soft Cervix, Position: Midposition Presentation 'A': Cephalic Datetime: 06/21/2018 00:00 Stage of : Labor Maternal Assessment Level of Consciousness: Fully Conscious DTR's/Clonus: DTRs 2+ Headache: Denies Breath Sounds, Left: Clear and Equal Breath Sounds, Right: Clear and Equal Nausea/Vomiting: Denies RUQ Epigastric Pain: Denies Monitor Mode: Palpation Quality: Strong Pattern: Normal: <= 5 Contractions in 10 Minutes Resting Tone [place]: Relaxed Heart Rate FHR Baseline Rate: 145 Monitor Mode: External US FHR Baseline Changes: No Baseline Change Variability: Moderate 6-25 bpm Accelerations: None Decelerations: Variable Category: Category II Pain Assessment Pain Scale: 8 Pain Presence: Intermittent Pain Type: Contraction Pain Location: Abdomen; Back; Perineum Pain Relief Measures: Comfort Measures Datetime: 06/20/2018 23:48 Assessment Type: Admission Assessment Vaginal Bleeding: None Maternal Assessment Level of Consciousness: Fully Conscious Headache: Denies Blurred Vision: No Respiratory Effort: Unlabored; Regular Rhythm; Equal Expansion Nausea/Vomiting: Denies RUQ Epigastric Pain: Denies Facial Edema: None Fall Risk Assessment History of Falling: (0) No Secondary Diagnosis: (0) No Ambulatory Aid: (0) Bedrest/Nurse Assist IV Therapy: (20) Yes Gait: (0) Normal/Bedrest/Immobile Mental Status: (0) Oriented to Own Ability Fall Score: 20 Fall Risk Score Definition: No Risk: No action required Pain Assessment Pain Scale: 8 Pain Presence: Intermittent Pain Type: Cramping Datetime: 06/20/2018 23:15 Stage of : Labor Datetime: 06/20/2018 22:51 Time of Arrival: 06/20/2018 22:51 EGA: 39.2 Arrived By: Wheelchair Arrived From: OB TRIAGE Datetime: 06/20/2018 22:15 Time of Arrival: 06/20/2018 21:55 EGA: 39.2 Arrived By: Wheelchair Arrived From: Home Chief Complaint: UC's Movement: Present Contractions: Regular Time Contractions Began: 06/20/2018 19:00 Contractions: Every 3 min Rupture of Membranes: Denies Vaginal Bleeding: None Vaginal Discharge: Denies Recent Sexual Intercouse: Denies Abdominal Trauma: Not Applicable Patient Complaints: Contractions Additional Patient Complaints: leaking x2 episodes Time Provider Notified: 06/20/2018 22:51 Provider Notified: Dr. Farrar Initial Plan: CEFM Datetime: 06/20/2018 22:08 Stage of : OB Triage Assessment Type: Triage Maternal Assessment Level of Consciousness: Fully Conscious DTR's/Clonus: DTRs 2+; No Clonus Headache: Denies Blurred Vision: No Respiratory Effort: Unlabored; Regular Rhythm; Equal Expansion Breath Sounds, Left: Clear and Equal Breath Sounds, Right: Clear and Equal Nausea/Vomiting: Denies RUQ Epigastric Pain: Denies Lower Extremities Edema: None Degree: None Upper Extremities Edema: None Degree: None Facial Edema: None Temperature Route: Oral Fall Risk Assessment History of Falling: (0) No Secondary Diagnosis: (0) No Ambulatory Aid: (0) Bedrest/Nurse Assist IV Therapy: (0) No Gait: (0) Normal/Bedrest/Immobile Mental Status: (0) Oriented to Own Ability Fall Score: 0 Fall Risk Score Definition: No Risk: No action required Pain Assessment Pain Scale: 7 Pain Presence: Intermittent Pain Type: Cramping Pain Location: Abdomen Datetime: 06/20/2018 22:06 Vaginal Exam Dilatation (cms): 2.5 Effacement (%): 60 Station: -2 Exam By: Adair Strauss RN Membrane Status: Ruptured Membranes Ruptured Date/Time: 06/20/2018 19:30 Membranes Rupture Method: Spontaneous Vaginal Bleeding: None Cervix, Consistency: Moderate Cervix, Position: Midposition Presentation 'A': Cephalic Datetime: 06/10/2018 22:14 Fall Score: 0 Fall Risk Score Definition: No Risk: No action required Datetime: 06/10/2018 22:06 EGA: 37.6 Datetime: 05/25/2018 13:49 EGA: 37.6 Datetime: 05/20/2018 07:48 Fall Score: 20 Fall Risk Score Definition: No Risk: No action required Datetime: 05/19/2018 19:36 Fall Score: 20 Fall Risk Score Definition: No Risk: No action required Datetime: 05/19/2018 16:25 Fall Score: 0 Fall Risk Score Definition: No Risk: No action required Datetime: 05/19/2018 10:50 Fall Score: 0 Fall Risk Score Definition: No Risk: No action required Datetime: 05/19/2018 10:48 EGA: 34.5 Datetime: 05/11/2018 15:07 EGA: 33.4 Datetime: 05/07/2018 22:29 Fall Score: 0 Fall Risk Score Definition: No Risk: No action required Datetime: 05/07/2018 22:20 EGA: 33.0 Datetime: 03/24/2018 00:10 EGA: 26.5 Datetime: 03/22/2018 11:55 Fall Score: 0 Fall Risk Score Definition: No Risk: No action required Datetime: 03/22/2018 11:52 Amniotic Fluid Color: Clear Amniotic Fluid Amount: Moderate Amniotic Fluid Odor: None Datetime: 03/22/2018 11:51 EGA: 26.3
[2018-06-21 07:50] VITALS: BP 109/65; PULSE 93; RESP 18
[2018-06-21] MEDS: SENNA/DOCUSATE NA (8.6MG/50MG) TAB PO SCH ×2 (09:26→21:04)
--- NOTE | 2018-06-21 12:54 | PN ---
Date/Time of Note Date/Time of Note DATE: 06/21/18 TIME: 12:52 OB Subjective Subjective Subjective PPD# 1 Patient is doing well. She denies nausea, vomiting, shortness of breath, chest pain, headache. She has been ambulating without difficulty, tolerating regular diet. Pain is well controlled on current medications OB Objective Objective Objective VS - Last 72 Hours, by Label Date Temp Pulse Resp B/P (MAP) Pulse Ox O2 O2 Flow FiO2 Time Delivery Rate 06/21/18 98.8 93 18 109/65 Room Air 07:50 (80) 06/21/18 98.3 102 20 114/80 Room Air 04:00 (91) 06/21/18 99.4 102 21 117/66 Room Air 03:05 (83) 06/20/18 99.0 104 19 121/70 Room Air 22:22 (87) General: AAO X 3, comfortable, NAD, appropriate mood and affect. ABD: +BS. Soft, non-tender. Uterus 2 cm below umbilicus Flank: No CVA tenderness (B/L) LE: Mild edema. No clubbing, cyanosis, thigh or calf tenderness (B/L). Homans 'sign is negative OB Assessment/Plan Other plan: 37 years old s/p normal vaginal delivery at 39 weeks and 2 days. PPD#1 - AF, VSS - Baby is doing well, at bed side. She is bonding well - Contraception methods with R/B/A/FR discussed - Continue care - Discharge home tomorrow - Rx and instruction given - Follow up in 2 and 6 weeks at clinic LARA RODNEY Jun 21, 2018 12:54
--- NOTE | 2018-06-21 12:55 | DS ---
Date/Time of Note Date/Time of Note DATE: 06/21/18 TIME: 12:54 Obstetrical Discharge Record Final Diagnosis Final Diagnosis: Term delivered Other Final Diagnosis 37 years old s/p normal vaginal delivery at 39 weeks and 2 days. PPD#1. Sputum course is unremarkable. She is ambulating and tolerating regular diet. She is voiding without difficulty. Pain is controlled on current medication. - AF, VSS - Baby is doing well, at bed side. She is bonding well - Contraception methods with R/B/A/FR discussed - Continue care - Discharge home tomorrow - Rx and instruction given - Follow up in 2 and 6 weeks at clinic Vaginal Delivery Obstetrical Delivery: Spontaneous Condition on Discharge Physical Assessment Last Vitals: Vital Signs Date Temp Pulse Resp B/P (MAP) Pulse Ox O2 O2 Flow FiO2 Time Delivery Rate 06/21/18 98.8 93 18 109/65 Room Air 07:50 (80) Voiding: Yes Bowel Movement: Yes Breast: Soft, non-tender Fundus: Firm Calf Tenderness: No Patient Condition: Stable LARA RODNEY Jun 21, 2018 12:55
[2018-06-21 15:44] VITALS: BP 130/60; PULSE 75; RESP 18
[2018-06-21 20:00] VITALS: BP 127/64; PULSE 85; RESP 19
[2018-06-22 03:50] VITALS: BP 127/61; PULSE 76; RESP 20
[2018-06-22] MEDS: IBUPROFEN 600 MG TAB PO SCH ×4 (05:33→23:29)
[2018-06-22 08:00] VITALS: BP 116/58; PULSE 75; RESP 17
[2018-06-22] MEDS: SENNA/DOCUSATE NA (8.6MG/50MG) TAB PO SCH ×2 (08:20→20:40)
[2018-06-22 15:18] VITALS: BP 114/58; PULSE 80; RESP 19
--- NOTE | 2018-06-22 15:26 | QN ---
Documentation Comment day #1 Status post Patient stable and afebrile Vital signs stable VS - Last 72 Hours, by Label Date Temp Pulse Resp B/P (MAP) Pulse Ox O2 O2 Flow FiO2 Time Delivery Rate 06/22/18 98.6 80 19 114/58 Room Air 15:18 (76) 06/22/18 98.1 75 17 116/58 Room Air 08:00 (77) 06/22/18 97.9 76 20 127/61 Room Air 03:50 (83) 06/21/18 98.2 85 19 127/64 Room Air 20:00 (85) 06/21/18 98.0 75 18 130/60 Room Air 15:44 (83) 06/21/18 98.8 93 18 109/65 Room Air 07:50 (80) 06/21/18 98.3 102 20 114/80 Room Air 04:00 (91) 06/21/18 99.4 102 21 117/66 Room Air 03:05 (83) 06/20/18 99.0 104 19 121/70 Room Air 22:22 (87) Hematology - 72 Hrs Test 06/20/18 23:15 06/22/18 08:06 Hematocrit 38.8 % (37.0-47.0) 39.0 % (37.0-47.0) Hemoglobin 12.8 g/dl (12.0-16.0) 12.6 g/dl (12.0-16.0) Mean Corpuscular 28.9 pg (29.0-33.0) L 28.4 pg (29.0-33.0) L Hemoglobin Mean Corpuscular 33.0 g/dl (32.0-37.0) 32.3 g/dl (32.0-37.0) Hemoglobin Concent Mean Corpuscular Volume 87.6 fl (82.0-101.0) 88.0 fl (82.0-101.0) Mean Platelet Volume 10.6 fl (7.4-10.4) H 10.9 fl (7.4-10.4) H Platelet Count 241 10^3/UL (140-415) 258 10^3/UL (140-415) Red Blood Count 4.43 10^6/ul (4.20-5.40) 4.43 10^6/ul (4.20-5.40) Red Cell Distribution 13.9 % (11.5-14.5) 14.4 % (11.5-14.5) Width White Blood Count 16.2 10^3/ul (4.8-10.8) 12.4 10^3/ul (4.8-10.8) H #H Abdomen soft, fundus firm Perineum intact Extremities nontender Assessment and plan Patient stable and doing well Continue with routine care MAR HERNANDEZ MD Jun 22, 2018 15:25
[2018-06-22 20:15] VITALS: BP 113/60; PULSE 82; RESP 18
[2018-06-23 03:30] VITALS: BP 116/72; PULSE 74; RESP 21
[2018-06-23] MEDS: IBUPROFEN 600 MG TAB PO SCH ×2 (05:23→11:40)
[2018-06-23 08:20] VITALS: BP 113/58; PULSE 71; RESP 17
[2018-06-23] MEDS: SENNA/DOCUSATE NA (8.6MG/50MG) TAB PO SCH (08:52)
[2018-06-23] MEDS ORDERED: DIPHTH/TET/ACEL PERTUSS (ADULT) 0.5 ML VIAL IM* ONE (09:00)
--- NOTE | 2018-06-23 10:23 | DS ---
Date/Time of Note Date/Time of Note DATE: 06/23/18 TIME: 10:22 Obstetrical Discharge Record Final Diagnosis Final Diagnosis: Term delivered Vaginal Delivery Obstetrical Delivery: Spontaneous Complications Augmentation: No Induction: No Rupture of Membranes: No Condition on Discharge Physical Assessment Last Vitals: vss afebrile Voiding: Yes Bowel Movement: Yes Breast: Soft, non-tender Fundus: Firm Abdomen and Incision: n/a Episiotomy: n/a Calf Tenderness: No Patient Condition: Stable ROBERT GARSIA MD Jun 23, 2018 10:23
--- NOTE | 2018-06-23 10:24 | PD.PPDC ---
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
--- NOTE | 2018-06-24 16:50 | DELSUM ---
Delivery Summary A-C Datetime Report Generated by CPN: 06/24/2018 16:50 DELIVERY PERSONNEL Priming Machine Operator: Tersigni, Jacqueline MATERNAL INFORMATION Delivery Anesthesia: Epidural Medications in Delivery: LR with 30 units of pitocin Delivery QBL (ml): 200 Placenta Cultured: No Maternal Complications: None LABOR SUMMARY EDC: 06/25/2018 00:00 No. Babies in Womb: 1 Attempted: No Labor Anesthesia: Epidural LABOR INFORMATION Reason for Induction: Not Applicable Onset of Labor: 06/20/2018 22:06 Complete Dilatation: 06/21/2018 00:54 Oxytocin: N/A Group B Beta Strep: Negative Antibiotics # of Doses: 0 Steroids Given: None Reason Steroids Not Administered: Not Applicable MEMBRANES Membranes Rupture Method: Spontaneous Rupture of Membranes: 06/20/2018 19:30 Length of Rupture (hr): 5.62 Amniotic Fluid Color: Clear Amniotic Fluid Amount: Moderate Amniotic Fluid Odor: None STAGES OF LABOR Stage 1 hr: 2 Stage 1 min: 48 Stage 2 hr: 0 Stage 2 min: 13 Stage 3 hr: 0 Stage 3 min: 3 Total Time in Labor hr: 3 Total Time in Labor min: 4 VAGINAL DELIVERY Episiotomy: None Laceration Extension: N/A Laceration Type: None Laceration Repair: Not Applicable Initial Vag Sponge Count: 10 Final Vag Sponge Count: 10 Initial Vag Sharps Count: 1 Final Vag Sharps Count: 1 Sponge Count Correct: Yes; Vaginal Sweep Performed Sharps Count Correct: Yes BABY A INFORMATION Infant Delivery Date/Time: 06/21/2018 01:07 Method of Delivery: Vaginal Born in Route : No : N/A Forceps: N/A Vacuum Extraction: N/A Shoulder Dystocia : No SHOULDER DYSTOCIA BABY A Delivery Date/Time: 06/21/2018 01:07 PRESENTATION/POSITION BABY A Presentation: Cephalic Cephalic Presentation: Vertex Vertex Position: Left Occipital Anterior Breech Presentation: N/A PLACENTA INFORMATION BABY A Placenta Delivery Time : 06/21/2018 01:10 Placenta Method of Delivery: Spontaneous Placenta Status: Delivered SCORES BABY A Heart Rate 1 min: >100 bpm Resp Effort 1 min: Good Cry Reflex Irritability 1 min: Cough/Sneeze/Pulls Away Muscle Tone 1 min: Active Motion Color 1 min: Blue/Pale Resuscitation Effort 1 min: Tactile Stimulation SCORE 1 MIN: 8 Heart Rate 5 min: >100 bpm Resp Effort 5 min: Good Cry Reflex Irritability 5 min: Cough/Sneeze/Pulls Away Muscle Tone 5 min: Active Motion Color 5 min: Body [place], Extremit Blue Resuscitation Effort 5 min: Tactile Stimulation SCORE 5 MIN: 9 INFORMATION BABY A Gestational Age at Delivery: 39.3 Gestational Status: Full Term- 39- 40.6 Weeks Outcome : Liveborn Infant Condition : Stable Infant Sex: Female IDENTIFICATION/MEDS BABY A ID Band Number: [id number] ID Band Location: Right Leg; Left Arm Sensor Applied: Yes Sensor Number: [id number] Sensor Location : Cord Clamp Vitamin K Given : Not Given Erythromycin Given: Not Given WEIGHT/LENGTH BABY A Birthweight (gm): 3680 Infant Weight (lb): 8 Infant Weight (oz): 2 Infant Length (in): 19.50 Length (cm): 49.53 CORD INFORMATION BABY A No. Cord Vessels: 3 Nuchal Cord : N/A Cord Blood Taken: Yes Suction: Mouth; Nose ASSESSMENT BABY A Infant Complications: Meconium Complications- Other: terminal meconium Physical Findings at Delivery: Within Normal Limits Infant Respirations: Appears Normal Costuming Supervisor/ALS Called : No Infant Care By: Monae PRETTY Transferred To: Remains with Mother
== END 2018-06-23 16:50 | disposition home or self-care (01) | DRG 807 ==
LOC: OBT 22:04 → L-D 22:06 → OBT 22:51 → PP1 06-21 02:51
PROVIDERS: ADMIT Obstetrics & Gynecology; ATTEND Obstetrics & Gynecology
PROC: 10E0XZZ Delivery of Products of Conception, External Approach (ICD-10-PCS; principal; 2018-06-21)
DX: O80 Encounter for full-term uncomplicated delivery (principal); Z37.0 Single live birth; Z3A.39 39 weeks gestation of pregnancy
CPT/HCPCS: 85025; 85610; 85730; 86592; 86850; 86900; 86901; 87340; 90715; G0463; J2590; J3010; J7120